=== PATIENT | male | born 1955 | race Caucasian/White ===

== ENCOUNTER 2022-12-16 09:44 | Inpatient (IN) | payer MEDICARE ==
[~2022-12-16] VITALS: Ht 190.5 cm; Wt 100.1 kg
[2022-12-16] MEDS ORDERED: LACTULOSE SYRUP 10GM/15ML (ENULOSE) 30ML UDC PO PRN (10:15)
[2022-12-16] MEDS ORDERED: guaiFENesin/CODEINE (ROBITUSSIN AC) 10ML UDC PO PRN (10:15)
[2022-12-16] MEDS ORDERED: FLEET ENEMA ADULT 1 EA BTL PR PRN (10:15)
[2022-12-16] MEDS ORDERED: CALCIUM CARBONATE 500 MG (TUMS) TAB.CHEW PO PRN (10:15)
[2022-12-16] MEDS ORDERED: ALPRAZolam 0.25 MG (XANAX) TAB PO PRN (10:15)
[2022-12-16] MEDS ORDERED: diphenhydrAMINE 25 MG TAB (BENADRYL) PO PRN (10:15)
[2022-12-16] MEDS ORDERED: LOPERAMIDE 2 MG (IMODIUM) TABLET PO PRN (10:15)
[2022-12-16] MEDS ORDERED: ACETAMINOPHEN 325 MG TABLET PO PRN (10:15)
[2022-12-16] MEDS ORDERED: ONDANSETRON 4 MG (ZOFRAN) ORAL DISSOLVE TAB PO PRN (10:15)
[2022-12-16] MEDS ORDERED: DOCUSATE SODIUM 100 MG (COLACE) CAP PO PRN (10:15)
[2022-12-16] MEDS ORDERED: BISACODYL 10 MG SUPP (DULCOLAX) PR PRN (10:15)
[2022-12-16] MEDS ORDERED: CARV12.53 PO (12:53)
[2022-12-16] MEDS ORDERED: ASPI-999 PO (12:53)
[2022-12-16] MEDS ORDERED: VITA100033 PO (12:53)
[2022-12-16] MEDS ORDERED: KRIL1CAP18 PO (12:53)
[2022-12-16] MEDS ORDERED: LISI40TA9 PO (12:53)
[2022-12-16] MEDS ORDERED: ATOR80TA76 PO (12:53)
[2022-12-16] MEDS ORDERED: ASCO100024 PO (12:53)
[2022-12-16] MEDS ORDERED: CLOP75TA28 PO (12:53)
[2022-12-16] MEDS ORDERED: [UNRECOGNIZED DRUG - REMARK] PO (13:08)
[2022-12-16 15:50] VITALS: BP 119/80
--- NOTE | 2022-12-16 16:44 | PM&R Post Admission Assessment ---
PM&R HP Date of Visit: Dec 16, 2022 Time of Visit: 18:30 History of Present Illness CC: CVA HPI: This is a 67yoWM who presented to ARU following a CVA causing dysarthria and right sided weakness. Patient is having issues with thin liquids so will shift to thickened liquids until speech therapy assesses the patient. Son and daughter are at the bedside. 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 He does have a chronic cough and he does smoke. I have reviewed [facility] chart: Mark Meredith a 67 y.o.malewho was admitted to [facility] on 12/11/2022for evaluation and management of slurred speech with left-sided visual obstruction and right-sided weakness. As per the patient and the family, symptoms started this Friday. He also has dysarthria. Initial imaging was consistent with possible stroke for which she was admitted. 12/12: Head CT shows old infarcts. He also shows age indeterminate infarct around the left thalamic hemisphere left basal ganglia and left pontine hemisphere. Head and neck CTA shows multifocal basal ganglia and left hemithalamic infarcts, left pontine hemisphere infarct. MRI brain although has severe motion artifact but is consistent with multifocal acute nonhemorrhagic infarcts. Echocardiogram, lipid panel and HbA1c pending. 12/13: Echocardiogram showing EF 40 to 45% with global hypokinesis. Negative bubble study. Given patient's stroke, he is not an ideal candidate for any cardiac intervention so we will treat him medically with beta-blockers, ELMA inhibitors, aspirin and statin. He will benefit from outpatient follow-up with cardiology. 12/14: Blood pressure continues to be elevated, I adjusted the dosing of blood pressure medications. Patient is progressing well and is doing much better. Pending placement and insurance authorization. 12/15: Patient's blood pressure was last elevated at 0507. After receiving his morning medications, his blood pressure has remained stable and within deep ropriate range. Patient met with a physical therapist today and completed 36 minutes of PT. Overall, his condition is steadily improving. Patient and family are agreeable with plan to discharge to SNF pending placement and insurance authorization. Patient seen by medical student under direct supervision of Dr. Brandon. 01/02: Patient progressed well and then was discharged to SNF on 12/16. He is to follow-up with PCP, cardiology and neurology after discharge. Repeat CBC and CMP at that time. All of his questions were answered to his satisfaction and patient was pleased with the care. He was discharged in a stable condition Past Yrfiisu-Blexhh-Fdfmxn Hx Past Med/Social Hx: Reviewed Nursing Past Med/Soc Hx, Reviewed and Corrections made Patient Social History Marrital Status: single Employed/Student: retired Alcohol Use: Regular Use Smoking Status: Current Everyday Smoker Past Medical History Cardiac: Hypertension Neurological: Stroke PM&R Allergy/Meds/Data Review Allergies Coded Allergies: No Allergy Information Available (Unverified , 12/16/22) Home Medications Scheduled Ascorbic Acid (Vitamin C), 1,000 MG PO DAILY, (Reported) Aspirin (Aspirin), 81 MG PO DAILY, (Reported) Atorvastatin Calcium (Atorvastatin Calcium), 80 MG PO HS, (Reported) Carvedilol (Carvedilol), 12.5 MG PO BID WITH MEALS, (Reported) Clopidogrel Bisulfate (Clopidogrel), 75 MG PO DAILY, (Reported) Krill/Om-3/Dha/Epa/Phospho/Ast (Krill Oil 1,000 mg Softgel), 1 EACH PO DAILY, (Reported) Lisinopril (Lisinopril), 40 MG PO DAILY, (Reported) Vitamin E Mixed (Vitamin E), 1,000 UNIT PO DAILY, (Reported) [Allergy Supplement], EA PO UD, (Reported) Current Medications Current Medications Reviewed Review of Systems Constitutional: see HPI, malaise, weakness EENTM: no symptoms reported Respiratory: cough Cardiovascular: no symptoms reported Gastrointestinal: no symptoms reported Genitourinary: no symptoms reported Musculoskeletal: back pain, joint pain Skin: no symptoms reported Psychiatric/Neurological: Depressed, Numbness, Weakness All Other Systems Reviewed Negative Unless Noted: Yes Physical Exam Physical Exam Vital Signs Vital Signs - First Documented 12/16/22 15:50 Temp 37.0 Pulse 84 Resp 20 B/P (MAP) 119/80 (93) Pulse Ox 97 O2 Delivery Room Air Capillary Refill : Height, Weight, BMI Height: '" Weight: lbs. oz. kg; BMI Method: General Appearance: No Apparent Distress, WD/WN, Chronically ill Eyes: Bilateral Eye Normal Inspection, Bilateral Eye PERRL HEENT: PERRL/EOMI, Normal ENT Inspection, Pharynx Normal Neck: Full Range of Motion, Normal Inspection, Non Tender, Supple, Carotid Bruit Respiratory: Chest Non Tender, Lungs Clear, No Accessory Muscle Use, No Respiratory Distress, Decreased Breath Sounds Cardiovascular: Regular Rate, Rhythm, No Edema, No Gallop, No JVD, No Murmur, Normal Peripheral Pulses Gastrointestinal: Normal Bowel Sounds, No Organomegaly, No Pulsatile Mass, Non Tender, Soft Back: Normal Inspection, No CVA Tenderness, No Vertebral Tenderness Extremity: Normal Capillary Refill, Normal Inspection, Normal Range of Motion, Non Tender, No Calf Tenderness, No Pedal Edema Neurologic/Psychiatric: Alert, Oriented x3, Abnormal process trainer II-XII, Abnormal Gait, Aphasia, Depressed Affect, Disoriented, Facial Droop, Motor Weakness (right sided 2/5) Skin: Normal Color, Warm/Dry Lymphatic: No Adenopathy PM&R Medical Assessment & Plan REHAB/MEDICAL ASSESSMENT AND PLAN: REHAB IMPAIRMENT GROUP: CVA ETIOLOGIC DIAGNOSIS: CVA The comorbidities that impact the patients function and/or functional outcome by: smoker, COPD, left eye prior injury, dysphagia, high risk for aspiration REHAB PLAN: The patient is being admitted to our comprehensive inpatient rehabilitation facility and can tolerate the intensity of service consisting of at least: 180 minutes of therapy a day, 5 out of 7 days a week Rehab treatment will consist of: PT OT will focus on regaining function with use of AD while ST works on aspiration risk and dysarthria in order to regain independence and return home The patient/family has a good understanding of our discharge process and will benefit from an interdisciplinary inpatient rehabilitation program. The patient has potential to make improvement and is in need of at least two of the following multidisciplinary therapies including but not limited to physical, occupational, speech, and prosthetics and orthotics. Additionally the patient will need services from respiratory, nutritional services, wound care, psychology, etc. (Customize this to each patient). Given the patients complex condition and risk of further medical complications, rehabilitation services cannot be safely or effectively provided at a lower level of care such as a detention facility. BARRIERS TO DISCHARGE: Catastrophic CVA ESTIMATED LOS: 10 days DISPOSITION: Home RELEVANT CHANGES SINCE PREADMISSION SCREENING: I have compared the patients medical and functional status at the time of the preadmission screening and there are: no changes PROGNOSIS: Fair REHABILITATION GOALS: 1. PT OT will focus on regaining function with use of AD while ST works on aspiration risk and dysarthria in order to regain independence and return home All the above goals were reviewed with the patient and he/she is in agreement. By signing this document, I acknowledge that I have personally performed a full physical examination on this patient within 24 hours of admission to this inpatient rehabilitation facility and have determined the patient to be able to tolerate the above course of treatment at an intensive level for a reasonable period of time. I will be completing a detailed individualized Plan of Care for this patient by day #4 of the patients stay based upon the Preadmission Screen, the Post-Admission Evaluation, and the therapy evaluations. Admission Dx/Comorbidities: (1) CVA (cerebral vascular accident) ICD Codes: I63.9 - Cerebral infarction, unspecified Assessment/Plan Assessment and Plan Assess & Plan/Chief Complaint Assessment: CVA Right sided weakness Dysphagia Smoker COPD Chronic cough HTN HLP Left eye blindness Plan: BP management Fall risk Aspiration risk PT OT protocol YUMIKO LIZAMA DO Dec 16, 2022 16:44
[2022-12-16 20:05] VITALS: BP 116/79
[2022-12-16] MEDS: SENNA W/DOCUSATE (SENOKOT S) TABLET PO SCH (21:02)
[2022-12-16] MEDS: DOCUSATE SODIUM 100 MG (COLACE) CAP PO SCH (21:02)
[2022-12-16] MEDS: MELATONIN 3 MG TABLET PO PRN (21:02)
[2022-12-16] MEDS: polyethylene glycoL POWDER 17 GM (MIRALAX) PACK PO SCH (21:02)
[2022-12-17 05:34] LABS: BASOPHILS # (AUTO) 0.1 10^3/uL (0.0-0.1); BASOPHILS % (AUTO) 1 % (0-10); EOSINOPHILS # (AUTO) 0.2 10^3/uL (0.0-0.3); EOSINOPHILS % (AUTO) 2 % (0-10); HEMATOCRIT 47 % (40-54); HEMOGLOBIN 16.2 g/dL (13.3-17.7); LYMPHOCYTES # (AUTO) 3.1 10^3/uL (1.0-4.0); LYMPHOCYTES % (AUTO) 29 % (12-44); MEAN CORPUSCULAR HEMOGLOBIN 31 pg (25-34); MEAN CORPUSCULAR HGB CONC 35 g/dL (32-36); MEAN CORPUSCULAR VOLUME 91 fL (80-99); MEAN PLATELET VOLUME 9.9 fL (9.0-12.2); MONOCYTES % (AUTO) 9 % (0-12); NEUTROPHILS # (AUTO) 6.1 10^3/uL (1.8-7.8); NEUTROPHILS % (AUTO) 58 % (42-75); PLATELET COUNT 280 10^3/uL (130-400); WHITE BLOOD COUNT 10.5 10^3/uL (4.3-11.0)
[2022-12-17 05:54] LABS: ALBUMIN 3.7 GM/DL (3.2-4.5); POTASSIUM 3.7 MMOL/L (3.6-5.0)
[2022-12-17 05:55] LABS: CALCIUM 9.3 MG/DL (8.5-10.1)
[2022-12-17 05:57] LABS: TOTAL PROTEIN 7.4 GM/DL (6.4-8.2)
[2022-12-17 05:58] LABS: BILIRUBIN,TOTAL 0.5 MG/DL (0.1-1.0)
[2022-12-17 06:00] LABS: CREATININE SERUM 0.85 MG/DL (0.60-1.30)
--- NOTE | 2022-12-17 06:16 | PM&R Progress Note ---
Subjective HPI/CC On Admission Date Seen by Provider: Dec 17, 2022 Time Seen by Provider: 08:30 Subjective/Events-last exam 12/17/2022: Doing well Participating with therapy Standing with assist No pain Dysarthria noted Review of Systems General: Fatigue, Malaise Pulmonary: Cough Neurological: Weakness, Incoordination Objective Exam Vital Signs Vital Signs Date Time Temp Pulse Resp B/P (MAP) Pulse Ox O2 Delivery O2 Flow Rate FiO2 12/17/22 18:12 88 116/70 (85) 12/17/22 09:30 Room Air 12/17/22 07:55 36.1 14 97 Capillary Refill : General Appearance: No Apparent Distress, WD/WN, Chronically ill HEENT: PERRL/EOMI, Normal ENT Inspection, Pharynx Normal Neck: Full Range of Motion, Normal Inspection, Non Tender, Supple, Carotid Bruit Respiratory: Chest Non Tender, Lungs Clear, No Accessory Muscle Use, No Respiratory Distress, Decreased Breath Sounds Cardiovascular: Regular Rate, Rhythm, No Edema, No Gallop, No JVD, No Murmur, Normal Peripheral Pulses Gastrointestinal: Normal Bowel Sounds, No Organomegaly, No Pulsatile Mass, Non Tender, Soft Back: Normal Inspection, No CVA Tenderness, No Vertebral Tenderness Extremity: Normal Capillary Refill, Normal Inspection, Normal Range of Motion, Non Tender, No Calf Tenderness, No Pedal Edema Neurologic/Psychiatric: Alert, Oriented x3, Abnormal hvac/r instructor II-XII, Abnormal Gait, Aphasia, Depressed Affect, Disoriented, Facial Droop, Motor Weakness (right sided 2/5) Skin: Normal Color, Warm/Dry Lymphatic: No Adenopathy Results/Procedures Lab Laboratory Tests 12/17/22 05:13 Patient resulted labs reviewed. FIM Transfers Therapy Code Descriptions/Definitions Functional [place] Measure: 0=Not Assessed/NA 4=Minimal Assistance 1=Total Assistance 5=Supervision or Setup 2=Maximal Assistance 6=Modified [place] 3=Moderate Assistance 7=Complete IndependenceSCALE: Activities may be completed with or without assistive devices. 6-Eiuahqwikk-xdqkpyy completes the activity by him/herself with no assistance from a helper. 5-Set-up or Clean-up Assistance-helper sets up or cleans up; patient completes activity. [place] assists only prior to or following the activity. 4-Supervision or Touching Assistance-helper provides verbal cues and/or touching/steadying and/or contact guard assistance as patient completes activity. Assistance may be provided throughout the activity or intermittently. 3-Partial/Moderate Assistance-helper does LESS THAN HALF the effort. [place] lifts, holds or supports trunk or limbs, but provides less than half the effort. 2-Substantial/Maximal Assistance-helper does MORE THAN HALF the effort. [place] lifts or holds trunk or limbs and provides more than half the effort. 4-Osvojwycs-ycxesl does ALL the effort. Patient does none of the effort to complete the activity. Or, the assistance of 2 or more helpers is required for the patient to complete the activity. If activity was not attempted, code reason: 7-Patient Refused. 9-Not Applicable-not attempted and the patient did not perform the activity before the current illness, exacerbation or injury. 10-Not Attempted due to Environmental Limitations-(lack of equipment, weather restraints, etc.). 88-Not Attempted due to Medical Conditions or Safety Concerns. Assessment/Plan Assessment and Plan Assess & Plan/Chief Complaint Assessment: CVA Right sided weakness Dysphagia Smoker COPD Chronic cough HTN HLP Left eye blindness Plan: BP management Fall risk Aspiration risk PT OT protocol 12/17/2022: Monitor closely IS ST consult (1) CVA (cerebral vascular accident) YUMIKO LIZAMA DO Dec 17, 2022 06:16
[2022-12-17 07:52] VITALS: BP 116/79
[2022-12-17 07:55] VITALS: BP 135/91
[2022-12-17] MEDS: ASCORBIC ACID (VIT C) 500 MG TABLET PO SCH (07:55)
[2022-12-17] MEDS: lisINopril 40 MG (PRINIVIL) TABLET PO SCH (07:55)
[2022-12-17] MEDS: CLOPIDOGREL 75 MG (PLAVIX) TABLET PO SCH (07:55)
[2022-12-17] MEDS: DOCUSATE SODIUM 100 MG (COLACE) CAP PO SCH ×2 (07:56→20:59)
[2022-12-17] MEDS: SENNA W/DOCUSATE (SENOKOT S) TABLET PO SCH ×2 (07:56→20:58)
[2022-12-17] MEDS: VITAMIN E 180 MG (400 UNITS) CAP PO SCH (07:56)
[2022-12-17] MEDS: OMEGA 3 (FISH OIL) 1000 MG CAP PO SCH (07:56)
[2022-12-17] MEDS: ASPIRIN 81 MG CHEW (CHILDREN'S ASA) PO SCH (07:56)
--- NOTE | 2022-12-17 08:05 | Occupational Therapy Eval ---
OT Evaluation-General/PLF Medical Diagnosis Admission Date Dec 16, 2022 at 15:50 Medical Diagnosis: s/p CVA Onset Date: Dec 11, 2022 Therapy Diagnosis Therapy Diagnosis: decreased ADL status, imparied functional use RUE. Precautions Precautions/Isolations: Fall Prevention, Standard Precautions Referral Physician: Rose Sharif Reason: Evaluation/Treatment Medical History Additional Medical History tobacco use, marijuana use, L ptosis Current History 12/11/22 ED via family with c/o possible CVA. ~5 days prior, pt had worsening speech, confusion, L lid lag, and difficulty moving RUE/LE. Pt admitted to [facility] and with L thalamic hemisphere, L basal ganglia and L pontine hemisphere CVA. Pt transferred to ARU 12/16/22 Social History Home: Mobile home Current Living Status: Children (son) Entry Into Home: Ramp ADL-Prior Level of Function SCALE: Activities may be completed with or without assistive devices. 5-Druphnblsl-lwkhuxu completes the activity by him/herself with no assistance from a helper. 5-Set-up or Clean-up Assistance-helper sets up or cleans up; patient completes activity. [place] assists only prior to or following the activity. 4-Supervision or Touching Assistance-helper provides verbal cues and/or touching/steadying and/or contact guard assistance as patient completes activity. Assistance may be provided throughout the activity or intermittently. 3-Partial/Moderate Assistance-helper does LESS THAN HALF the effort. [place] lifts, holds or supports trunk or limbs, but provides less than half the effort. 2-Substantial/Maximal Assistance-helper does MORE THAN HALF the effort. [place] lifts or holds trunk or limbs and provides more than half the effort. 8-Xkfcheslu-yrlxzr does ALL the effort. Patient does none of the effort to complete the activity. Or, the assistance of 2 or more helpers is required for the patient to complete the activity. If activity was not attempted, code reason: 7-Patient Refused. 9-Not Applicable-not attempted and the patient did not perform the activity before the current illness, exacerbation or injury. 10-Not Attempted due to Environmental Limitations-(lack of equipment, weather restraints, etc.). 88-Not Attempted due to Medical Conditions or Safety Concerns. ADL PLOF Comments Per pt and chart review from OSH, pt was independent with ADLs and functional mobility without AD. Pt has a tub/shower, unsure if pt has a SC or not. Self Care: Independent Functional Cognition: Independent DME/Equipment: Tub/Shower DME/Equipment Comments owns BSC, FWW, w/c. OT Current Status Subjective OT had difficulty understanding what pt was trying to say. OT noted coughing on thin liquids, OT notified RN (possible aspiration?) Mental Status/Objective Patient Orientation: Person, Place, Time, Situation Current Hand Dominance: Right Upper Extremity ROM WFL bilaterally Upper Extremity Coordination decreased RUE Upper Extremity Sensation Pt reports intact sensation BUEs. Upper Extremity Strength RUE grossly 3+/5, LUE grossly 4+/5 ADL-Treatment Eating (QC): 5 Oral Hygiene (QC): 4 Shower/Bathe Self (QC): 1 Upper Body Dressing (QC): 3 Lower Body Dressing (QC): 1 On/Off Footwear (QC): 5 Toileting Hygiene (QC): 1 Other Treatments Pt up in recliner eating breakfast, agreeable to OT evaluation. Noted pt coughing when taking a drink of water out of a cup (no straw), RN aware. Pt provided information about PLOF and home set up to his ability (OT had difficulty understanding what pt was saying most of the time). Pt also participated in UE screen. Post tx, pt up in recliner, call light in reach and all needs met, VENTURA present to continue tx. Education OT Patient Education: Correct positioning, Energy conservation, Modified ADL techniques, Progress toward Goal/Update tx plan, Purpose of tx/functional activities, Rehab process Teaching Recipient: Patient Teaching Methods: Discussion Response to Teaching: Verbalize Understanding BIMS CAM BIMS Expression of Ideas and Wants: Frequently Understanding Verbal Content: Usually Understands Brief Interview/Mental Status: Yes IRF GRIFFIN BIMS: IRF GRIFFIN BIMS Response (Comments) Value Repitition of Three Words Two 2 Recalls Socks No, Could Not Recall 0 Recalls Blue No, Could Not Recall 0 Recalls Bed No, Could Not Recall 0 Year Correct 3 Month Accurate Within 5 Days 2 Day Incorrect or No Answer 0 Total 7 Should Staff Asses. Mental St.: No CAM Mental Status Change/Baseline: 1 Inattention: 2 Disorganized thinkin Altered level of consciousness: 0 OT Short Term Goals Short Term Goals Time Frame: Jan 03, 2023 Shower/bathe self: 2 Lower body dressin OT Welder/Fabricator Goals Welder/Fabricator Goals Time Frame: January 17, 2023 Eating (QC): 6 Oral Hygiene (QC): 6 Toileting Hygiene (QC): 4 Shower/Bathe Self (QC): 4 Upper Body Dressing (QC): 4 Lower Body Dressing (QC): 4 On/Off Footwear (QC): 4 Additional Goals: 1-Demonstrate ADL Tasks, 2-Verbalize Understanding, 3- ImproveStrength/Talha 1=Demonstrate adherence to instructed precautions during ADL tasks. 2=Patient will verbalize/demonstrate understanding of assistive devices/modifications for ADL. 3=Patient will improve strength/tolerance for activity to enable patient to perform ADL's. OT Education/Plan Problem List/Assessment Assessment: Decreased Activ Tolerance, Decreased Safety Aware, Decreased UE Strength, Impaired Cognition, Impaired Coordination, Impaired Funct Balance, Impaired I ADL's, Impaired Self-Care Skills, Restricted Funct UE ROM, Visual- Perceptual Deficit Discharge Recommendations Plan/Recommendations: Continue POC Equpiment Recommendations-D/C: Extended Bath Bench, Bath Chair Treatment Plan/Plan of Care Patient would benefit from OT for education, treatment and training to promote independence in ADL's, mobility, safety and/or upper extremity function for ADL's. Plan of Care: ADL Retraining, Functional Mobility, Group Exercise/Act as Ind, UE Funct Exercise/Act, UE Neuromus Re-Ed/Coord, Visual/Perceptual Retrain, W/C Management Training Treatment Duration: January 17, 2023 Frequency: At least 5 of 7 days/Wk (IRF) Estimated Hrs Per Day: 1.5 hours per day Agreement: Yes Rehab Potential: Fair Time Start Time: 07:40 Stop Time: 08:00 DATE: Dec 17, 2022 Total Time Billed (hr/min): 20 Billed Treatment Time 1, ZAINAB MAI OT Dec 17, 2022 08:05
[2022-12-17] MEDS: polyethylene glycoL POWDER 17 GM (MIRALAX) PACK PO SCH ×2 (08:17→20:59)
--- NOTE | 2022-12-17 08:22 | Occupational Ther Daily Note ---
OT Current Status-Daily Note Subjective Pt alert, sitting in recliner. Pt agrees to therapy after encouragement. Pt states that he doesn't want to do much today. Pt tired but able to participate in skilled therapy. PT/OT co-treat ([id number]), skills of 2 clinicians required to decrease fall risk, increase safe transfers and mobility. Pt focusing on transfers, ambulation while OT focusing on ADLs and functional mobility. Mental Status/Objective Patient Orientation: Person, Place, Time, Situation, [place] ADL-Treatment Pt declines shower though was able to cleanse christelle area in sitting after set up. Thread feet into pants by self then assist x2 to hike over hips due to pt leaning and decreased balance to L side. After set up, pt able to don/doff shoes by self. Therapy Code Descriptions/Definitions Functional [place] Measure: 0=Not Assessed/NA 4=Minimal Assistance 1=Total Assistance 5=Supervision or Setup 2=Maximal Assistance 6=Modified [place] 3=Moderate Assistance 7=Complete IndependenceSCALE: Activities may be completed with or without assistive devices. 4-Svxlbmosim-qktgpyq completes the activity by him/herself with no assistance from a helper. 5-Set-up or Clean-up Assistance-helper sets up or cleans up; patient completes activity. [place] assists only prior to or following the activity. 4-Supervision or Touching Assistance-helper provides verbal cues and/or touching/steadying and/or contact guard assistance as patient completes activity. Assistance may be provided throughout the activity or intermittently. 3-Partial/Moderate Assistance-helper does LESS THAN HALF the effort. [place] lifts, holds or supports trunk or limbs, but provides less than half the effort. 2-Substantial/Maximal Assistance-helper does MORE THAN HALF the effort. [place] lifts or holds trunk or limbs and provides more than half the effort. 6-Kfotpfpty-dgwcfg does ALL the effort. Patient does none of the effort to complete the activity. Or, the assistance of 2 or more helpers is required for the patient to complete the activity. If activity was not attempted, code reason: 7-Patient Refused. 9-Not Applicable-not attempted and the patient did not perform the activity before the current illness, exacerbation or injury. 10-Not Attempted due to Environmental Limitations-(lack of equipment, weather restraints, etc.). 88-Not Attempted due to Medical Conditions or Safety Concerns. Lower Body Dressing (QC): 1 On/Off Footwear: 5 Other Treatment See PT notes for ambulation progress. Pt required increased assistance with maintaining midline during standing and ambulation, assist to manipulate FWW for safety. After therapy, pt lying in bed with call light/phone in reach. PROJECTOR OPERATOR took over care of pt. OT Short Term Goals Short Term Goals Time Frame: Jan 03, 2023 Shower/bathe self: 2 Lower body dressin OT [facility] Goals Software Test Analyst Goals Time Frame: January 17, 2023 Acute change in mental status: 1 Inattention: 2 Disorganized thinkin Altered level of consciousness: 0 Eating (QC): 6 Oral Hygiene (QC): 6 Toileting Hygiene (QC): 4 Shower/Bathe Self (QC): 4 Upper Body Dressing (QC): 4 Lower Body Dressing (QC): 4 On/Off Footwear (QC): 4 Additional Goals: 1-Demonstrate ADL Tasks, 2-Verbalize Understanding, 3- ImproveStrength/Talha 1=Demonstrate adherence to instructed precautions during ADL tasks. 2=Patient will verbalize/demonstrate understanding of assistive devices/modifications for ADL. 3=Patient will improve strength/tolerance for activity to enable patient to perform ADL's. OT Education/Plan Problem List/Assessment Assessment: Decreased Activ Tolerance, Decreased Safety Aware, Decreased UE Strength, Dependent Transfers, Impaired Bed Mobility, Impaired Cognition, Impaired Coordination, Impaired Funct Balance, Impaired I ADL's, Impaired Self- Care Skills, Restricted Funct UE ROM, Visual-Perceptual Deficit Discharge Recommendations Plan/Recommendations: Continue POC Treatment Plan/Plan of Care Patient would benefit from OT for education, treatment and training to promote independence in ADL's, mobility, safety and/or upper extremity function for ADL 's. Plan of Care: ADL Retraining, Functional Mobility, Group Exercise/Act as Ind, UE Funct Exercise/Act, UE Neuromus Re-Ed/Coord, Visual/Perceptual Retrain, W/C Management Training Treatment Duration: January 17, 2023 Frequency: At least 5 of 7 days/Wk (IRF) Estimated Hrs Per Day: 1.5 hours per day Agreement: Yes Rehab Potential: Fair Time Start Time: 08:15 Stop Time: 09:03 DATE: Dec 17, 2022 Total Time Billed (hr/min): 48 Billed Treatment Time 1 visit-FA 3 (48 min) co-treat with PT [id number] JHOANA GRACE Dec 17, 2022 08:22
[2022-12-17] MEDS ORDERED: VITAMIN E MIXED 1000 UNIT PO SCH (09:00)
[2022-12-17] MEDS ORDERED: NON-FORMULARY MEDICATION 1 EA EA (Ascorbic Acid (Vitamin C) 1,000 MG) PO SCH (09:00)
[2022-12-17] MEDS ORDERED: NON-FORMULARY MEDICATION 1 EA EA (Krill/Om-3/Dha/Epa/Phospho/Ast (Krill Oil 1,000 mg Softg PO SCH (09:00)
--- NOTE | 2022-12-17 09:25 | Physical Therapy Evaluation ---
PT Evaluation-General Medical Diagnosis Admission Date Dec 16, 2022 at 15:50 Medical Diagnosis: s/p CVA Onset Date: Dec 11, 2022 Therapy Diagnosis Therapy Diagnosis: (L) CVA, (R) hemiparesis, severe balance/gait deficits, impaired mobility Height/Weight Height (Feet): 6 Height (Inches): 3 Precautions Precautions/Isolations: Fall Prevention, Standard Precautions significant fall risk Weight Bear Status Full Weight Bearing Full Weight Bearing Pushes significantly toward (R)/affected side Referral Physician: Rose Reason for Referral: Evaluation/Treatment Medical History Pertinent Medical History: CAD, CVA, HTN, [place], Smoking Additional Medical History HLD, depression, PAD. leukocytosis, tobacco and marijuana user. per CT = (B) age-indeterminate strokes and while matter disease - multiple lacunar infarcts (old) (L), (R) basal ganglia infarct, probably new (L) thalamic CVA Social History Home: Mobile home Current Living Status: Children (son) Entry Into Home: Ramp Prior Prior Level of Function SCALE: Activities may be completed with or without assistive devices. 8-Ucqanfunvi-dvskrfi completes the activity by him/herself with no assistance from a helper. 5-Set-up or Clean-up Assistance-helper sets up or cleans up; patient completes activity. [place] assists only prior to or following the activity. 4-Supervision or Touching Assistance-helper provides verbal cues and/or touching/steadying and/or contact guard assistance as patient completes activity. Assistance may be provided throughout the activity or intermittently. 3-Partial/Moderate Assistance-helper does LESS THAN HALF the effort. [place] lifts, holds or supports trunk or limbs, but provides less than half the effort. 2-Substantial/Maximal Assistance-helper does MORE THAN HALF the effort. [place] lifts or holds trunk or limbs and provides more than half the effort. 0-Hjienfnlo-fdnker does ALL the effort. Patient does none of the effort to complete the activity. Or, the assistance of 2 or more helpers is required for the patient to complete the activity. If activity was not attempted, code reason: 7-Patient Refused. 9-Not Applicable-not attempted and the patient did not perform the activity before the current illness, exacerbation or injury. 10-Not Attempted due to Environmental Limitations-(lack of equipment, weather restraints, etc.). 88-Not Attempted due to Medical Conditions or Safety Concerns. 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 Home equip available: crutches, BSC, 2RW and W/C per Sharlene notes. PT Evaluation-Current Subjective Dysarthric speech. Able to greet this P.T. Appropriate comments during session. Able to follow commands for LE MMT and transfers. Pain Numeric Pain Scale: 0-No Pain Section J - Health Conditions 1. Rarely or not at all 2. Occasionally 3. Frequently 4. Almost constantly 8. Unable to answer Pain Effect on Sleep: 1 Pain Interference with Therapy: 1 Pain Interference w/Day-to-Day: 1 Pt/Family Goals To return home with son Objective Patient Orientation: Person, Situation Sitting EOB /p transfers: O2 sats ~ 95% on room air as long as patient breathed normally. When patient breathed deeply his O2 sats dropped to the high 80's. Instructed patient to breath normally and they returned to ~ 95%. Dr. Rose made aware during her visit to the patient's room. ROM/Strength ROM Upper Extremities deferred to OT ROM Lower Extremities WFL ROM (L) LE, WFL (R) LE at hip/knee given increased time to complete due to motor coordination deficits. Mild decrease in (R) ankle DF compared to (L). Strength Upper Extremities deferred to OT Strength Lower Extremities (L) LE knee flex/ext 5/5, hip flexion 5/5, hip abd/add 5/5. Ankle PF/DF 5/5. (R) LE knee flexion/ext 4+/5, hip flexion 4/5, hip abd/add 4/5. Ankle DF 4/5, PF 4/5. Neuromuscular (Tone, Coordination, Reflexes) Significant motor coordination impairment in (B) LE's, more involved on (R). See OT for (R) UE report. Sensory Vision: L impaired Hand Dominance: Right Sensation Right Lower Extremit: Intact Sensation Left Lower Extremity: Intact Transfers Roll Left & Right (QC): 3 (Min (A) to roll (L) -- needed therapist to place (R) hand on bedrail for patient to pull. (I) rolling (R) with bedrail.) Sit to Lying (QC): 3 (min (A) of 1 to lift (R) leg onto bed) Lying to Sitting/Side of Bed(Q: 3 (mod (A) of 1 to lift trunk sit sit EOB and min (A) due to leaning (R) once in sitting. Patient was able to regain sitting balance and sit without assist once scooted to EOB.) Sit to Stand (QC): 1 (Min-mod (A) of 2 to FWW with assist and cues for (B) hand placement. Also cues and assist to uncross feet prior to sit>stand.) Chair/Pgf-jd-Pakgw Xfer(QC): 1 (mod-max (A) of 1 for stand pivot with FWW or stand pivot without device - leans heavily to (L) and needs (A) with walker negotiation, difficulty advancing LE's without crossing feet.) Toilet Transfer (QC): 1 ((A) of 2 for safety.) Car Transfer (QC): 88 (Not safe today due to assist required for basic transfers.) Pushes heavily to (R) with transfers with or without device. Gait Does the Patient Walk?: Yes Mode of Locomotion: Both Anticipated Mode of Locomotion: Both Walk 10 feet (QC): 1 (Mod-max (A) of 2 with 3rd person for w/c backup with FWW, leans heavily to (R), difficulty advancing (R) LE even with built-up sole on (L) LE. Scissors feet occasionally.) Walk 50 ft with 2 Turns(QC): 88 (Unable to cover 50' safely) Walk 150 ft (QC): 88 (Unable to cover 50' safely) Walking 10ft/uneven surface-QC: 88 (Unable to perform safely) Wheelchair Training Does the Pt Use a Wheelchair?: Yes Distance: 50 Wheel 50 ft with 2 turns (QC): 3 (Min (A) using (L) UE and feet, CGA using (B) LE's only with cues to avoid obstacles, min (A) using (L) UE and (L) LE ((R) foot on legrest).) Wheel 150 ft (QC): 3 (Min (A) using (L) UE and feet, CGA using (B) LE's only with cues to avoid obstacles, min (A) using (L) UE and (L) LE ((R) foot on legrest).) Type of Wheelchair: Manual Be cautious with (R) hand as patient attempts to use it and "loses" (R) hand at wheel. Able to lock/unlock brakes with mod verbal/visual cues using (L) UE. Stairs 1 Step (curb) (QC): 88 4 Steps (QC): 88 12 Steps (QC): 88 Stair ambulation not safe to perform due to significant balance and gait deficits. Balance Sitting Static: Fair Sitting Dynamic: Poor Standing Dynamic: Poor Picking up an Object (QC): 88 (unsafe to attempt in standing due to balance deficits.) Special Test Comments Elderly Mobility Scale: 2/20 = dependent for mobility Treatment Standing balance with FWW with weight shifts (L)/(R) with mirror in front of patient to assist with finding midline and shifting weight away from (R) side. Mod (A) of 2. Walking with built-up sole on (L) LE to ease step-through on (R) - mild improvement but continued to push heavily to the (R) - max (A) to maintain patient's upright posture by therapist on patient's right. 2nd therapist assist with gait and 3rd assist from Senior Ui Developer for W/C f/u. Assessment/Needs 67 year old male with significant mobility deficits, severe balance impairment and severe motor coordination deficits. Leans HEAVILY to (R) with gait and transfers and has difficulty with feet placement, crossing feet at times. Is a HIGH fall risk at this time and dependent with upright mobility, requiring 2 staff for transfers. Rehab Potential: Fair Equipment Needs Will need a w/c at D/C. [employer] notes states he has one at home. May need hemiwalker vs. FWW - will continue to assess. PT Typing Bookkeeper Goals Typing Bookkeeper Goals PT Typing Bookkeeper Goals Time Frame: January 14, 2023 Roll Left to Right (QC): 6 Sit to Lying (QC): 5 Lying-Sitting on Side/Bed(QC): 5 Sit to Stand (QC): 3 (Min (A) of 1) Chair/Bbl-ss-Bxvlk Xfer(QC): 3 (Min (A) of 1) Toilet/Commode Transfer (QC): 3 (Min (A) of 1) Car Transfer (QC): 3 (Min (A) of 1) Does the Patient Walk: Yes Walk 10 feet (QC): 3 (Mod (A) of 1 with least restrictive device) Walk 10ft-Uneven Surface(QC): 88 Walk 50ft with 2 Turns (QC): 3 (mod (A) of 1 with least restrictive device) Walk 150 ft (QC): 88 Does the Pt use WC or Scooter?: Yes Wheel 50 feet with 2 turns (QC: 5 Type: Manual Wheel 150 feet: 5 1 Step (curb) (QC): 88 4 Steps (QC): 88 12 Steps (QC): 88 Picking up an Object (QC): 3 (mod (A) of 1 with FWW and industrial gas fitter helper) PT Plan Problem List Problem List: Activity Tolerance, Functional Strength, Safety, Balance, Gait, Transfer, Bed Mobility, ROM, Other (W/C propulsion/management) Treatment/Plan Treatment Plan: Continue Plan of Care Treatment Plan: Bed Mobility, Education, Functional Activity Talha, Functional Strength, Group Therapy, Gait, Safety, Therapeutic Exercise, Transfers, Other (W/C propulsion/management) Treatment Duration: January 14, 2023 Frequency: At least 5 of 7 days/Wk (IRF) Estimated Hrs Per Day: 1.5 hours per day Patient and/or Family Agrees t: Yes Safety Risks/Education Safety Risk Comments: Significant fall risk Patient Education: Gait Training, Transfer Techniques, W/C Management, Safety Issues Teaching Recipient: Patient Teaching Methods: Demonstration, Discussion Response to Teaching: Reinforcement Needed Discharge Recommendations Therapy Discharge Recommendati: 24 Hour Supervision, Home & Family, Post Acute PT Equpiment Recommendations-D/C: Manual Wheelchair, Other, Please Explain (FWW or hemiwalker) Barriers to Progress Severity of balance impairment. Time Time In: 805 Time Out: 903 DATE: Dec 17, 2022 Total Billed Treatment Time: 58 Total Billed Treatment 8:05-8:15 - [facility] 10'. 8:15-9:03 - 48' Co-treatment with OT, (1 Gt(20'), 1 FA(18'), 1 W/C(10')). Co-treatment appropriate and necessary for this patient due acuity, severity of impairments with balance/coordination/gait/functional mobility that require 2 person assist to address multiple issues and provide for patient safety. Rosita Ozuna PT Dec 17, 2022 09:25
--- NOTE | 2022-12-17 11:00 | ST Dysphagia Evaluation ---
Speech Evaluation-General Medical Diagnosis s/p CVA Onset Date: Dec 11, 2022 Therapy Diagnosis Therapy Diagnosis: Suspected Oropharyngeal Dysphagia Precautions Precautions: Fall, Pressure Ulcer, Aspiration Precautions/Isolations: Aspiration, Fall Prevention, Standard Precautions, Pressure Ulcer Referral Referring Physician: Dr. Gabriela Rose Reason for Referral: Evaluation/Treatment Medical History Pertinent Medical History: CAD, CVA, HTN, [place], Smoking Reviewed History: Yes Social History Current Living Status: Children (son) Speech PLF/Current-Dysphagia Prior Level of Function The patient stated he was consuming a regular consistency diet with thin liquids prior to his most recent stroke. The patient denied prior challenges or concerns with his oropharyngeal swallowing function. The patient underwent a clinical bedside swallowing evaluation at [facility] on 10/17/22 with recommendations of a regular consistency diet with thin liquids. Subjective The patient was seated upright in his bed, awake and alert, upon entrance to his room by the clinician. The patient greeted the clinician appropriately and was agreeable to participation in the clinical bedside swallowing evaluation. To note, the patient displayed "coughing" on thin liquids with the RN and the Occupational Therapist. Due to this, the patient is receiving "thickened" liquids at this time. Cognitive Status Patient Orientation: Person, Place, Time, Situation Oral Motor Skills Dentition: Natural Current Food Consistancy: Regular, Thin Liquids Ability to Follow Directions: Good Oral Expression Ability: Moderate Impairment Voice Voice Phonatory-Based Quality: Glottal Snell Voice Pitch: Normal Voice Loudness: Normal Face Facial Symmetry: Asymmetrical Oral-Facial Assessment Oral-Facial Dentition: Normal Labial Seal Description: Normal Smile: Normal Puff Cheeks: Normal Lingual Protrusion: Normal Lingual ROM: Normal Lingual Strength: Normal Volitional Dry Swallow: Yes Voluntary Cough: Yes Can Clear Throat Volitionally: Yes Productive Cough: Yes Productive Throat Clear: Yes Dysphagia Evaluation Consistencies Presented: Regular, Thin Liquid, [place] Thick Liquid (Mildly thick liquids.), Pureed The clinician suspected poor lingual coordination with posterior spillage of thin liquids from the oral cavity. A suspected pharyngeal swallow delay was appreciated with thin liquid consistencies. Funct. Velo/Pharyngeal Symptom: Cough After Swallow The patient displayed an immediate, rigorous cough following one of five teaspoons of thin liquid and three cup edge drinks of eight ounces. No s/s of suspected aspiration were displayed with mildly thick liquid, puree, or solid co nsistencies tested. Dietary Recommendations: Regular Liquid Recommendations: [place] Consistancy (Mildly thick.) Recommendations: - Regular consistency diet with mildly thick liquids, as tolerated. - Fully upright and alert for P.O. intake. - Small bites and sips, only. - No straws. - Assistance with meal set-up and feeding, as needed. - Monitor for s/s of suspected aspiration with P.O. intake. If demonstrated, please contact speech pathology. - The patient will undergo a modified barium swallow evaluation on 12/18/22 at 0945 to further assess the safety of the swallow mechanism and better plan therapy techniques. The results and recommendations were provided to the patient and the patient's R N immediately following completion of the study. Dysphagia Evaluation Summary The patient demonstrated suspected oropharyngeal dysphagia characterized by mildly prolonged mastication of solid consistencies, suspected poor lingual coordination, and suspected delay in the pharyngeal swallow onset. The patient displayed intermittent s/s of suspected aspiration with thin liquids characterized by an immediate, rigorous cough. Speech Short Term Goals Short Term Goals Short Term Goals 1. The patient will display safe swallowing precautions with 80% accuracy, independently. Time Frame-STG: Five Days. Speech Registered Radiologic Technologist Goals Long-Term Goals 1. The patient will tolerate the least restrictive diet consistency without s/s of suspected aspiration. Time Frame: One Week. Speech-Plan Treatment Plan Speech Therapy Treatment Plan: Continue Plan of Care Frequency: Modified Program (IRF) (Three to fives times per week.) Estimated Hrs Per Day: .5 hour per day Rehab Potential: Fair Pt/Family Agrees to Plan: Yes Safety Risks/Education Teaching Recipient: Patient Teaching Methods: Discussion Response to Teaching: Verbalize Understanding Education Topics Provided: Safe Swallowing Precautions, Modified Barium Swallow, Results, Recommendations Time Speech Therapy Time In: 09:03 Speech Therapy Time Out: 09:38 DATE: Dec 17, 2022 Total Billed Time: 35 Billed Treatment Time 1, [facility] Dec 17, 2022 11:00
--- NOTE | 2022-12-17 11:47 | Occupational Ther Daily Note ---
OT Current Status-Daily Note Subjective Pt sleeping in bed, difficult to wake. Pt would wake and talk to VENTURA though declined to complete any OOB tasks. Mental Status/Objective Patient Orientation: Person, Situation ADL-Treatment Therapy Code Descriptions/Definitions Functional [place] Measure: 0=Not Assessed/NA 4=Minimal Assistance 1=Total Assistance 5=Supervision or Setup 2=Maximal Assistance 6=Modified [place] 3=Moderate Assistance 7=Complete IndependenceSCALE: Activities may be completed with or without assistive devices. 6-Qbkrjaukzb-cjadkci completes the activity by him/herself with no assistance from a helper. 5-Set-up or Clean-up Assistance-helper sets up or cleans up; patient completes activity. [place] assists only prior to or following the activity. 4-Supervision or Touching Assistance-helper provides verbal cues and/or touching/steadying and/or contact guard assistance as patient completes activity. Assistance may be provided throughout the activity or intermittently. 3-Partial/Moderate Assistance-helper does LESS THAN HALF the effort. [place] lifts, holds or supports trunk or limbs, but provides less than half the effort. 2-Substantial/Maximal Assistance-helper does MORE THAN HALF the effort. [place] lifts or holds trunk or limbs and provides more than half the effort. 4-Ydaiemhsw-bwgtcm does ALL the effort. Patient does none of the effort to complete the activity. Or, the assistance of 2 or more helpers is required for the patient to complete the activity. If activity was not attempted, code reason: 7-Patient Refused. 9-Not Applicable-not attempted and the patient did not perform the activity before the current illness, exacerbation or injury. 10-Not Attempted due to Environmental Limitations-(lack of equipment, weather restraints, etc.). 88-Not Attempted due to Medical Conditions or Safety Concerns. Other Treatment Pt demonstrating ability to assist with bed mobility though scoots down in bed almost immediately. Attempted to have pt change shirt, which he wanted to early, pt declined. Attempted to have pt sit up in recliner to eat lunch, pt stated that he doesn't want to eat. After therapy, pt fell back to sleep in bed. All needs met in room. Call light/phone in reach. Safety measures in place. OT Short Term Goals Short Term Goals Time Frame: Jan 03, 2023 Shower/bathe self: 2 Lower body dressin OT Group Home Goals Group Home Goals Time Frame: January 17, 2023 Acute change in mental status: 1 Inattention: 2 Disorganized thinkin Altered level of consciousness: 0 Eating (QC): 6 Oral Hygiene (QC): 6 Toileting Hygiene (QC): 4 Shower/Bathe Self (QC): 4 Upper Body Dressing (QC): 4 Lower Body Dressing (QC): 4 On/Off Footwear (QC): 4 Additional Goals: 1-Demonstrate ADL Tasks, 2-Verbalize Understanding, 3- ImproveStrength/Talha 1=Demonstrate adherence to instructed precautions during ADL tasks. 2=Patient will verbalize/demonstrate understanding of assistive devices/modifications for ADL. 3=Patient will improve strength/tolerance for activity to enable patient to perform ADL's. OT Education/Plan Problem List/Assessment Assessment: Decreased Activ Tolerance, Decreased Safety Aware, Impaired Bed Mobility Discharge Recommendations Plan/Recommendations: Continue POC Treatment Plan/Plan of Care Patient would benefit from OT for education, treatment and training to promote independence in ADL's, mobility, safety and/or upper extremity function for ADL's. Plan of Care: ADL Retraining, Functional Mobility, Group Exercise/Act as Ind, UE Funct Exercise/Act, UE Neuromus Re-Ed/Coord, Visual/Perceptual Retrain, W/C Management Training Treatment Duration: January 17, 2023 Frequency: At least 5 of 7 days/Wk (IRF) Estimated Hrs Per Day: 1.5 hours per day Agreement: Yes Rehab Potential: Fair Time Start Time: 11:25 Stop Time: 11:33 DATE: Dec 17, 2022 Total Time Billed (hr/min): 8 Billed Treatment Time 1 visit-FA 1 (8 min) JHOANA GRACE Dec 17, 2022 11:47
--- NOTE | 2022-12-17 13:34 | Physical Therapy Daily Note ---
PT Daily Note-Current Subjective No new c/o this a.m. Pain Section J - Health Conditions 1. Rarely or not at all 2. Occasionally 3. Frequently 4. Almost constantly 8. Unable to answer Pain Effect on Sleep: 1 Pain Interference with Therapy: 1 Pain Interference w/Day-to-Day: 1 Mental Status Garbled speech persists, but patient is able to make basic needs known. Transfers SCALE: Activities may be completed with or without assistive devices. 5-Gnkpqcqvqs-yfqfmby completes the activity by him/herself with no assistance from a helper. 5-Set-up or Clean-up Assistance-helper sets up or cleans up; patient completes activity. [place] assists only prior to or following the activity. 4-Supervision or Touching Assistance-helper provides verbal cues and/or touching/steadying and/or contact guard assistance as patient completes activity. Assistance may be provided throughout the activity or intermittently. 3-Partial/Moderate Assistance-helper does LESS THAN HALF the effort. [place] lifts, holds or supports trunk or limbs, but provides less than half the effort. 2-Substantial/Maximal Assistance-helper does MORE THAN HALF the effort. [place] lifts or holds trunk or limbs and provides more than half the effort. 4-Mqcsuhpmi-ektrae does ALL the effort. Patient does none of the effort to complete the activity. Or, the assistance of 2 or more helpers is required for the patient to complete the activity. If activity was not attempted, code reason: 7-Patient Refused. 9-Not Applicable-not attempted and the patient did not perform the activity before the current illness, exacerbation or injury. 10-Not Attempted due to Environmental Limitations-(lack of equipment, weather restraints, etc.). 88-Not Attempted due to Medical Conditions or Safety Concerns. Sit to Lying (QC): 4 (CGA at end of session.) Lying to Sitting/Side of Bed(Q: 4 (CGA this pm for sitting balance once EOB.) Sit to Stand (QC): 3 (min (A) of 1-2 from w/c x 3 using // bar. Stand to sit requires more mod (A) as patient shifts weight hard to (R) as he is sitting.) Chair/Eif-ge-Onuwc Xfer(QC): 3 (Swing pivot w/c<>bed using bedrail or arm of w/c min-mod (A) of 2.) Weight Bearing Full Weight Bearing Full Weight Bearing Pushes significantly toward (R)/affected side Gait Training Gait training in // bars with (L) LE only,with mirror directly in front of patient. -pre-gait (R)/(L) weight shifts with (A) of 3, much taller posture than when FWW was utilized this a.m. -Gait forward (length of bars) with mod (A) of 1-2, retro gait length of // bars mod (A) of 1. *while standing upright, lungs palpated with rattles with therapists hand supported patient on front of (R) chest. *seated rest break x 2' Sit>stand pulling from // bar rail mod (A) of 1. Ambulated with reciprocal continuous steps without scissoring feet nor losing balance to (R) min (A)-mod (A) x 1. Retro walk length of bars with (L) UE only, min (A) of 1. Walked forward again without rest min-mod (A) of 1 with more halting steps and some scissoring, then retro walked length of // bars min (A) of 1. Wheelchair Training Wheel 50 ft with 2 turns (QC): 4 (Patient propelled w/c to/from gym using (B) LE's with prn cues and assist for (R) obstacles.) Type of Wheelchair: Manual Assessment Much improved gait pattern with 1 // bar compared to FWW this a.m. Will utilize hemiwalker vs FWW in therapy to assist with upright mobility. Patient peformed well with swing pivot transfers this date compared to standing transfers this a.m. PT Retirement Goals Drivers License Examiner Goals PT Drivers License Examiner Goals Time Frame: January 14, 2023 Roll Left & Right (QC): 6 Sit to Lying (QC): 5 Lying-Sitting on Side/Bed(QC): 5 Sit to Stand (QC): 3 (Min (A) of 1) Chair/Vbc-ni-Nalhq Xfer(QC): 3 (Min (A) of 1) Toilet Transfer (QC): 3 (Min (A) of 1) Car Transfer (QC): 3 (Min (A) of 1) Does the Patient Walk: Yes Walk 10 feet (QC): 3 (Mod (A) of 1 with least restrictive device) Walk 50ft with 2 Turns (QC): 3 (mod (A) of 1 with least restrictive device) Walk 150 ft (QC): 88 Walking 10ft on Uneven Surface: 88 1 Step (curb) (QC): 88 4 Steps (QC): 88 12 Steps (QC): 88 Picking up an Object (QC): 3 (mod (A) of 1 with FWW and bolt sawyer) Does the Pt use WC or Scooter?: Yes Wheel 50 feet with 2 turns (QC: 5 Type: Manual Wheel 150 feet: 5 PT Plan Problem List Problem List: Activity Tolerance, Functional Strength, Safety, Balance, Gait, Transfer, Bed Mobility, ROM, Other (w/c propulsion) Treatment/Plan Treatment Plan: Continue Plan of Care Treatment Plan: Bed Mobility, Education, Functional Activity Talha, Functional Strength, Group Therapy, Gait, Safety, Therapeutic Exercise, Transfers, Other (W/C propulsion/management) Treatment Duration: January 14, 2023 Frequency: At least 5 of 7 days/Wk (IRF) Estimated Hrs Per Day: 1.5 hours per day Patient and/or Family Agrees t: Yes Time Time In: 1300 Time Out: 1323 DATE: Dec 17, 2022 Total Billed Treatment Time: 23 Total Billed Treatment 23 minutes: Gait 10'', W/C 8', FA 5' Rosita Ozuna PT Dec 17, 2022 13:34
--- NOTE | 2022-12-17 14:09 | Speech Therapy Progress Note ---
Therapy Progress Note Per administration request, the modified barium swallow has been rescheduled to December at 0915. Speech pathology will discuss the scheduling change and rationale with the patient at the patient's subsequent treatment session. MYLES SOTELO Dec 17, 2022 14:09
[2022-12-17 18:12] VITALS: BP 116/70
[2022-12-17] MEDS: MELATONIN 3 MG TABLET PO PRN (20:58)
[2022-12-17 21:20] VITALS: BP 93/58
--- NOTE | 2022-12-18 05:04 | PM&R Progress Note ---
Subjective HPI/CC On Admission Date Seen by Provider: Dec 18, 2022 Time Seen by Provider: 11:30 Subjective/Events-last exam 12/18/2022: Doing well Wants to go home soon Family at bedside NO major concerns 12/17/2022: Doing well Participating with therapy Standing with assist No pain Dysarthria noted Review of Systems General: Fatigue, Malaise Objective Exam Vital Signs Vital Signs Date Time Temp Pulse Resp B/P (MAP) Pulse Ox O2 Delivery O2 Flow Rate FiO2 12/18/22 20:55 Room Air 12/18/22 19:54 36.6 89 22 118/76 (90) 91 Capillary Refill : General Appearance: No Apparent Distress, WD/WN, Chronically ill HEENT: PERRL/EOMI, Normal ENT Inspection, Pharynx Normal Neck: Full Range of Motion, Normal Inspection, Non Tender, Supple, Carotid Bruit Respiratory: Chest Non Tender, Lungs Clear, No Accessory Muscle Use, No Respiratory Distress, Decreased Breath Sounds Cardiovascular: Regular Rate, Rhythm, No Edema, No Gallop, No JVD, No Murmur, Normal Peripheral Pulses Gastrointestinal: Normal Bowel Sounds, No Organomegaly, No Pulsatile Mass, Non Tender, Soft Back: Normal Inspection, No CVA Tenderness, No Vertebral Tenderness Extremity: Normal Capillary Refill, Normal Inspection, Normal Range of Motion, Non Tender, No Calf Tenderness, No Pedal Edema Neurologic/Psychiatric: Alert, Oriented x3, 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 FIM Transfers Therapy Code Descriptions/Definitions Functional [place] Measure: 0=Not Assessed/NA 4=Minimal Assistance 1=Total Assistance 5=Supervision or Setup 2=Maximal Assistance 6=Modified [place] 3=Moderate Assistance 7=Complete IndependenceSCALE: Activities may be completed with or without assistive devices. 6-Ukzozbquzl-lzxuzkj completes the activity by him/herself with no assistance from a helper. 5-Set-up or Clean-up Assistance-helper sets up or cleans up; patient completes activity. [place] assists only prior to or following the activity. 4-Supervision or Touching Assistance-helper provides verbal cues and/or touching/steadying and/or contact guard assistance as patient completes activity. Assistance may be provided throughout the activity or intermittently. 3-Partial/Moderate Assistance-helper does LESS THAN HALF the effort. [place] lifts, holds or supports trunk or limbs, but provides less than half the effort. 2-Substantial/Maximal Assistance-helper does MORE THAN HALF the effort. [place] lifts or holds trunk or limbs and provides more than half the effort. 7-Gbfnrlqxg-aqxbfy does ALL the effort. Patient does none of the effort to complete the activity. Or, the assistance of 2 or more helpers is required for the patient to complete the activity. If activity was not attempted, code reason: 7-Patient Refused. 9-Not Applicable-not attempted and the patient did not perform the activity before the current illness, exacerbation or injury. 10-Not Attempted due to Environmental Limitations-(lack of equipment, weather restraints, etc.). 88-Not Attempted due to Medical Conditions or Safety Concerns. Roll Left to Right (QC): 3 (Min (A) to roll (L) -- needed therapist to place (R) hand on bedrail for patient to pull. (I) rolling (R) with bedrail.) Sit to Lying (QC): 4 (CGA at end of session.) Sit to Stand (QC): 3 (min (A) of 1-2 from w/c x 3 using // bar. Stand to sit requires more mod (A) as patient shifts weight hard to (R) as he is sitting.) Chair/Jvl-qb-Wnhgk Xfer(QC): 3 (Swing pivot w/c<>bed using bedrail or arm of w/c min-mod (A) of 2.) Car Transfer (QC): 88 (Not safe today due to assist required for basic transfers.) Gait Training Does the Patient Walk?: Yes Walk 10 feet (QC): 1 (Mod-max (A) of 2 with 3rd person for w/c backup with FWW, leans heavily to (R), difficulty advancing (R) LE even with built-up sole on (L) LE. Scissors feet occasionally.) Walk 50 ft with 2 Turns(QC): 88 (Unable to cover 50' safely) Walk 150 ft (QC): 88 (Unable to cover 50' safely) Walking 10ft/uneven surface-QC: 88 (Unable to perform safely) Wheelchair Training Does the Pt Use a Wheelchair?: Yes Distance: 50 Wheel 50 ft with 2 turns (QC): 4 (Patient propelled w/c to/from gym using (B) LE's with prn cues and assist for (R) obstacles.) Wheel 150 ft (QC): 3 (Min (A) using (L) UE and feet, CGA using (B) LE's only with cues to avoid obstacles, min (A) using (L) UE and (L) LE ((R) foot on legrest).) Type of Wheelchair: Manual Stair Training 1 Step (curb) (QC): 88 4 Steps (QC): 88 12 Steps (QC): 88 Balance Picking up an Object (QC): 88 (unsafe to attempt in standing due to balance deficits.) ADL-Treatment Eating (QC): 5 Oral Hygiene (QC): 4 Shower/Bathe Self (QC): 1 Upper Body Dressing (QC): 3 Lower Body Dressing (QC): 1 On/Off Footwear (QC): 5 Toileting Hygiene (QC): 1 Assessment/Plan Assessment and Plan Assess & Plan/Chief Complaint Assessment: CVA Right sided weakness Dysphagia Smoker COPD Chronic cough HTN HLP Left eye blindness Plan: BP management Fall risk Aspiration risk PT OT protocol 12/17/2022: Monitor closely IS ST consult 12/18/2022: Aggressive rehab Monitor closely (1) CVA (cerebral vascular accident) YUMIKO LIZAMA DO Dec 18, 2022 05:04
--- NOTE | 2022-12-18 05:05 | Individualized Plan of Care ---
Individualized Plan of Care Rehab Nursing IPOC Order Admission Date Dec 16, 2022 at 15:50 Current Orders Orders Admission Order(Inpt,Obs,Sdc) (12/16/22 10:06) Vital Signs: Per Unit Policy ( 08,16,00 (12/16/22 10:06) Erik Theodore (12/16/22 10:06) Sequential Compression Device (12/16/22 10:06) Certified Nursing Assistant-Inpt Rehab Con (12/16/22 10:06) Rehab Nursing Orders-Ipoc (12/16/22 10:06) Physical Therapy Rehab Orders (12/16/22 10:06) Occupational Therapy Rehab Ord (12/16/22 10:06) Speech Therapy Rehab Orders (12/16/22 10:06) Cbc With Automated Diff (12/17/22 06:00) Comprehensive Metabolic Panel (12/17/22 06:00) Precautions (Aru) (12/16/22 10:06) Weekly Weight WEEK (12/16/22 10:06) Rehab-Intensity Of Therapy (12/16/22 10:06) Initiate Admission Nursing Pro .admission (12/16/22 10:06) Alprazolam Tablet (Xanax Tablet) (12/16/22 10:15) Calcium Carbonate Chew Tablet (Antacid C (12/16/22 10:15) Diphenhydramine Tablet (Benadryl Tablet) (12/16/22 10:15) Docusate Sodium Capsule (Colace Capsule) (12/16/22 21:00) Docusate Sodium Capsule (Colace Capsule) (12/16/22 10:15) Bisacodyl Suppository (Dulcolax Supposit (12/16/22 10:15) Lactulose Oral Solution (Enulose Oral So (12/16/22 10:15) Na Phos/Na Biphos Enema (Fleet Enema Davey (12/16/22 10:15) Guaifenesin/Codeine Syrup (Robitussin Ac (12/16/22 10:15) Loperamide Tablet (Imodium Tablet) (12/16/22 10:15) Melatonin Tablet (Melatonin Tablet) (12/16/22 10:15) Polyethylene Glycol Powder Pkt (Miralax (4/3/23 21:00) Ondansetron Oral Dissolve Tab (Zofran (12/16/22 10:15) Senna S Tablet (Senokot S Tablet) (12/16/22 21:00) Acetaminophen Tablet/Caplet (Tylenol T (12/16/22 10:15) Initiate Admission Nursing Pro .admission (12/16/22 10:06) Nursing Communication (Order) (12/16/22 15:51) Admission Arrival Bed Request (12/16/22 15:51) Aspirin Chewable Tablet (Baby Aspirin Ch (12/17/22 09:00) Atorvastatin Tablet (Lipitor Tablet) (12/16/22 21:00) Carvedilol Tablet (Coreg Tablet) (12/16/22 18:00) Clopidogrel Tablet (Plavix Tablet) (12/17/22 09:00) Lisinopril Tablet (Zestril Tablet) (12/17/22 09:00) (Nf) Ascorbic Acid (Vitamin C) (12/17/22 09:00) (Nf) Krill/Om-3/Dha/Epa/Phospho/Ast (Kri (12/17/22 09:00) (Nf) Vitamin E Mixed (Vitamin E) (12/17/22 09:00) Ascorbic Acid Tablet (Vitamin C Tablet) (12/17/22 08:00) Heart Healthy (12/16/22 Dinner) Dl-Alpha Tochopheryl Capsule (Vitamin E (12/17/22 09:00) [place] 3 Capsule (Fish Oil Capsule) (12/17/22 09:00) Patient Visit (12/17/22 ) Pt Eval High Complexity (12/17/22 ) Gait Training, Ea 15 Min (12/17/22 ) Wheelchair Mgmt/Propulsn 15min (12/17/22 ) Functional Activities, Ea 15 (12/17/22 ) Patient Visit (12/17/22 ) Gait Training, Ea 15 Min (12/17/22 ) Wheelchair Mgmt/Propulsn 15min (12/17/22 ) Ensure Plus Variety (12/17/22 15:11) Modified Barium Swallow (12/18/22 09:15) General/Regular (12/18/22 Lunch) Patient Visit (12/18/22 ) Dysphagia Asmnt-Mod Barium (12/18/22 ) Dysphagia Therapy (12/18/22 ) Patient Visit (12/18/22 ) Gait Training, Ea 15 Min (12/18/22 ) Exercise Therap, Ea 15 Min (12/18/22 ) Functional Activities, Ea 15 (12/18/22 ) Patient Visit (12/18/22 ) Exercise Therap, Ea 15 Min (12/18/22 ) Rehab Nursing Orders: Ongoing Assess. of Cognitive Status, Ongoing Assess. of Function Status, Bladder Management, Bladder Scan, Bladder Training, Bowel Management, Bowel Training, Disease Management & Educaiton, DVT Prophylaxis, Fall Prevention, Fluid/Electrolyte/Nutrition Mgmt, Infection Prevention, Medication Management & Education, Management of Risks & Complications, Management of Skin Intergrity, Nutrition Management, Pain Management, Patient/Family Support, Safety Management, Swallow Precautions Intensity of Therapy to be met Patient to be seen: Min.3h per day/5 of 7d PT IPOC Problem List: Activity Tolerance, Functional Strength, Safety, Balance, Gait, Transfer, Bed Mobility, ROM, Other (w/c propulsion) Treatment Plan: Continue Plan of Care Bed Mobility, Education, Functional Activity Talha, Functional Strength, Group Therapy, Gait, Safety, Therapeutic Exercise, Transfers, Other (W/C propulsion/management) Treatment Duration: January 14, 2023 Frequency: At least 5 of 7 days/Wk (IRF) Estimated Hrs Per Day: 1.5 hours per day OT IPOC Problems: Decreased Activ Tolerance, Decreased Safety Aware, Impaired Bed Mobility OT Treatment, Training and Edu: Yes Plan of Care: ADL Retraining, Functional Mobility, Group Exercise/Act as Ind, UE Funct Exercise/Act, UE Neuromus Re-Ed/Coord, Visual/Perceptual Retrain, W/C Management Training Treatment Duration: January 17, 2023 Frequency: At least 5 of 7 days/Wk (IRF) Estimated Hrs Per Day: 1.[address] IPOC Speech Therapy Treatment Plan: Continue Plan of Care Treatment Duration: Dec 18, 2022 Frequency: Modified Program (IRF) (Three to fives times per week.) Estimated Hrs Per Day: .5 hour per day Certified Nursing Assistant/Case Mgmt Certified Nursing Assistant/Case Managemen: Discharge Planning Dietitian/Ip Network Architect Dietitian/Ip Network Architect to monitor nutritional status and make changes and/or recommendations as needed and work with speech pathology on dietary upgrades as the occur. Physician IPOC Medical Issues being managed closely and that require the 24 hour availability of a physician: Recent catastrophic CVA with patient with COPD and labile HTN and dysarthria with dysphagia will require close medical supervision due to high risk for aspiration and decompensation Medical Issues: Bowel/Bladder Function, DVT Prophylaxis, Falls Precautions, Fluid/Electrolyte/Nutrition Balance, Infection Protection, Pain Management Brief Synthesis of Preadmission Screen, Post-Admission Evaluation, and Therapy Evaluations: PT OT will focus on regaining function with use of AD in order to return to independence with son and work on fall risk prevention Medical Prognosis: Fair Anticipated Length of Stay: 10 days YUMIKO LIZAMA DO Dec 18, 2022 05:04
[2022-12-18 07:58] VITALS: BP 152/90
[2022-12-18] MEDS: OMEGA 3 (FISH OIL) 1000 MG CAP PO SCH (08:28)
[2022-12-18] MEDS: CLOPIDOGREL 75 MG (PLAVIX) TABLET PO SCH (08:28)
[2022-12-18] MEDS: DOCUSATE SODIUM 100 MG (COLACE) CAP PO SCH ×2 (08:28→21:45)
[2022-12-18] MEDS: ASPIRIN 81 MG CHEW (CHILDREN'S ASA) PO SCH (08:28)
[2022-12-18] MEDS: lisINopril 40 MG (PRINIVIL) TABLET PO SCH (08:28)
[2022-12-18] MEDS: SENNA W/DOCUSATE (SENOKOT S) TABLET PO SCH ×2 (08:28→21:45)
[2022-12-18] MEDS: ASCORBIC ACID (VIT C) 500 MG TABLET PO SCH (08:29)
[2022-12-18] MEDS: polyethylene glycoL POWDER 17 GM (MIRALAX) PACK PO SCH ×2 (08:29→21:45)
[2022-12-18] MEDS: VITAMIN E 180 MG (400 UNITS) CAP PO SCH (08:29)
--- NOTE | 2022-12-18 08:58 | Speech Therapy Progress Note ---
Therapy Progress Note The ARU Plan of Care Meeting was re-scheduled for 10:30 on this date. Due to this, the clinician is available for completion of the modified barium swallow on this date. As the modified barium swallow is important for patient care and safety, the clinician assessed the patient's daily schedule for patient availability, contacted the remote scheduling department, contacted the radiology department at our facility, and received approval/permission to re- schedule the appointment to the date and time of December 18 at 0945. At this time, the patient is scheduled for a modified barium swallow at 0945 on this date. Results, recommendations, and an updated speech pathology plan of care will be provided immediately following completion of the study. MLYES SOTELO Dec 18, 2022 08:58
--- NOTE | 2022-12-18 09:57 | Speech Therapy Progress Note ---
Therapy Progress Note Speech pathology presented to the patient's room to provide an update on the scheduling and process of the modified barium swallowing evaluation. The patient stated, "Is my sister here?" The clinician stated she was unaware of his sister being present, however, she would check the floor and surrounding areas. The patient's sister is not present or located at this time by the clinician. Per patient, "I'm not doing anything until I can talk to my sister. She should be here today." The clinician provided gentle listening and support. The clinician requested the patient's sister's contact information but he patient stated he did not have a phone with the information present and did not know his sister's number. The patient requested his schedule for the day be read by the clinician. The times of each treatment session were provided by this therapist. Again the patient stated, "I'm not doing that without talking to my sister." The clinician provided encouragement and understanding to the patient, stating the sister could be present or participate in any therapy scheduled or remain in his room to wait for therapy to be completed. The patient continued to state, "I'll wait on her." A rationale for the necessity of his sister was not provided by the patient. The clinician discussed the importance of the modified barium swallow and politely requested the patient participate to advance his diet consistency recommendations and better guide his therapy plan of care. The patient reluctantly agreed and requested the time of the appointment and the length he would be away from his room. All information was provided and the clinician ensured the patient if his sister arrives while he is away, she will provide any and all recommendations to her. At this time, the patient agrees with participation in the study. As the patient refused blood pressure medication on this date, the clinician wanted to request additional information to ensure it was not due to a swallowing issue or concern. The patient denied a swallowing concern and again stated, "I'm waiting on my sister." The patient remained calm and polite to the clinician throughout all interactions regardless of stated refusal. MYLES SOTELO Dec 18, 2022 09:57
--- NOTE | 2022-12-18 11:13 | Diagnostic Imaging Report ---
INDICATION: Dysphasia. Procedure was performed in conjunction with speech pathology. Video fluoroscopy was performed during swallowing of barium multiple consistencies. Total of 1.7 minutes of fluoroscopic time was utilized. Patient ingested thin as well as nectar and honey consistency barium. In addition, patient ingested applesauce and cracker consistency. There were episodes of penetration and aspiration during swallowing of thin barium with a spoon and a cup as well as while performing chin tuck maneuver. Laryngeal penetration was also observed during swallowing of nectar and honey thickened consistencies. Applesauce and cracker consistencies were essentially unremarkable. Minimal residue was noted which would clear with a 2nd swallow. IMPRESSION: Abnormal modified barium swallow demonstrating episodes of aspiration during swallowing of thin barium. There are also multiple episodes of laryngeal penetration with other consistencies, as described above. Dictated by: Dictated on workstation # [id number]
--- NOTE | 2022-12-18 13:51 | Occupational Ther Daily Note ---
OT Current Status-Daily Note Subjective Pt alert, sitting in recliner. Pt agrees to therapy. No c/o pain at this time. PT/OT co-treat ([id number]), skills of 2 clinicians required to decrease fall risk, increase safe transfers and mobility. Pt focusing on transfers, ambulation while OT focusing on R UE placement and functional mobility. Mental Status/Objective Patient Orientation: Person, Place, Time, Situation ADL-Treatment Pt declines all ADLs. Therapy Code Descriptions/Definitions Functional [place] Measure: 0=Not Assessed/NA 4=Minimal Assistance 1=Total Assistance 5=Supervision or Setup 2=Maximal Assistance 6=Modified [place] 3=Moderate Assistance 7=Complete IndependenceSCALE: Activities may be completed with or without assistive devices. 6-Zvabosypld-bmohqui completes the activity by him/herself with no assistance from a helper. 5-Set-up or Clean-up Assistance-helper sets up or cleans up; patient completes activity. [place] assists only prior to or following the activity. 4-Supervision or Touching Assistance-helper provides verbal cues and/or touching/steadying and/or contact guard assistance as patient completes activity. Assistance may be provided throughout the activity or intermittently. 3-Partial/Moderate Assistance-helper does LESS THAN HALF the effort. [place] lifts, holds or supports trunk or limbs, but provides less than half the effort. 2-Substantial/Maximal Assistance-helper does MORE THAN HALF the effort. [place] lifts or holds trunk or limbs and provides more than half the effort. 1-Zidtnstdb-adcbga does ALL the effort. Patient does none of the effort to complete the activity. Or, the assistance of 2 or more helpers is required for the patient to complete the activity. If activity was not attempted, code reason: 7-Patient Refused. 9-Not Applicable-not attempted and the patient did not perform the activity before the current illness, exacerbation or injury. 10-Not Attempted due to Environmental Limitations-(lack of equipment, weather restraints, etc.). 88-Not Attempted due to Medical Conditions or Safety Concerns. Other Treatment Pt requires cues for R UE/LE placement for safe transfer, min A. Pt propels w/c to therapy gym with min A. Pt working on ambulation utilizing B UE with parallel bars and FWW. VENTURA assisted with positioning and decreasing fall risk during all standing/ambulation tasks. See PT notes for ambulation progress. Pt is demonstrating good strength with R UE though decrease in coordinating functional movements. Pt is able to wt bear on R UE though requires cues to focus on positioning R hand correctly. Pt able to stand and grasp item with L UE then transfer it to R UE without arm support for balance. Pt then working on voluntary release of objects toward designated area, 25% accuracy. After session, pt sitting in recliner with call light/phone in reach. All needs met in room. OT Short Term Goals Short Term Goals Time Frame: Jan 03, 2023 Shower/bathe self: 2 Lower body dressin OT Shock Absorption Floor Layer Goals Shock Absorption Floor Layer Goals Time Frame: January 17, 2023 Acute change in mental status: 1 Inattention: 2 Disorganized thinkin Altered level of consciousness: 0 Eating (QC): 6 Oral Hygiene (QC): 6 Toileting Hygiene (QC): 4 Shower/Bathe Self (QC): 4 Upper Body Dressing (QC): 4 Lower Body Dressing (QC): 4 On/Off Footwear (QC): 4 Additional Goals: 1-Demonstrate ADL Tasks, 2-Verbalize Understanding, 3- ImproveStrength/Talha 1=Demonstrate adherence to instructed precautions during ADL tasks. 2=Patient will verbalize/demonstrate understanding of assistive devices/modifications for ADL. 3=Patient will improve strength/tolerance for activity to enable patient to perform ADL's. OT Education/Plan Problem List/Assessment Assessment: Decreased Activ Tolerance, Decreased Safety Aware, Decreased UE Strength, Impaired Coordination, Impaired Funct Balance, Restricted Funct UE ROM, Visual-Perceptual Deficit Discharge Recommendations Plan/Recommendations: Continue POC Treatment Plan/Plan of Care Patient would benefit from OT for education, treatment and training to promote independence in ADL's, mobility, safety and/or upper extremity function for ADL's. Plan of Care: ADL Retraining, Functional Mobility, Group Exercise/Act as Ind, UE Funct Exercise/Act, UE Neuromus Re-Ed/Coord, Visual/Perceptual Retrain, W/C Management Training Treatment Duration: January 17, 2023 Frequency: At least 5 of 7 days/Wk (IRF) Estimated Hrs Per Day: 1.5 hours per day Agreement: Yes Rehab Potential: Fair Time Start Time: 11:00 Stop Time: 12:00 DATE: Dec 18, 2022 Total Time Billed (hr/min): 60 Billed Treatment Time 1 visit-NM 4 (60 min) co-treat with PT 60 min JHOANA GRACE Dec 18, 2022 13:51
--- NOTE | 2022-12-18 13:55 | Occupational Ther Daily Note ---
OT Current Status-Daily Note Subjective Pt alert, sitting in recliner. Pt's family is present in room. Pt agrees to therapy. No c/o pain. Mental Status/Objective Patient Orientation: Person, Place, Time, Situation ADL-Treatment Therapy Code Descriptions/Definitions Functional [place] Measure: 0=Not Assessed/NA 4=Minimal Assistance 1=Total Assistance 5=Supervision or Setup 2=Maximal Assistance 6=Modified [place] 3=Moderate Assistance 7=Complete IndependenceSCALE: Activities may be completed with or without assistive devices. 3-Rfwrxqudgc-fwmcben completes the activity by him/herself with no assistance from a helper. 5-Set-up or Clean-up Assistance-helper sets up or cleans up; patient completes activity. [place] assists only prior to or following the activity. 4-Supervision or Touching Assistance-helper provides verbal cues and/or touching/steadying and/or contact guard assistance as patient completes activity. Assistance may be provided throughout the activity or intermittently. 3-Partial/Moderate Assistance-helper does LESS THAN HALF the effort. [place] lifts, holds or supports trunk or limbs, but provides less than half the effort. 2-Substantial/Maximal Assistance-helper does MORE THAN HALF the effort. [place] lifts or holds trunk or limbs and provides more than half the effort. 0-Lgtqebgwm-pkcktd does ALL the effort. Patient does none of the effort to complete the activity. Or, the assistance of 2 or more helpers is required for the patient to complete the activity. If activity was not attempted, code reason: 7-Patient Refused. 9-Not Applicable-not attempted and the patient did not perform the activity before the current illness, exacerbation or injury. 10-Not Attempted due to Environmental Limitations-(lack of equipment, weather restraints, etc.). 88-Not Attempted due to Medical Conditions or Safety Concerns. Other Treatment Pt working on R UE coordination with B UE exercises/ROM. Pt requires skilled instruction for correct positioning and movement. Pt requires focus on R UE during exercises and movement for correct placement throughout. Pt requires physical cues to initiate and follow through with functional movement. After therapy, pt sitting in recliner with call light/phone in reach. Safety measures in place. All needs met. OT Short Term Goals Short Term Goals Time Frame: Jan 03, 2023 Shower/bathe self: 2 Lower body dressin OT Manager Field Service Goals Manager Field Service Goals Time Frame: January 17, 2023 Acute change in mental status: 1 Inattention: 2 Disorganized thinkin Altered level of consciousness: 0 Eating (QC): 6 Oral Hygiene (QC): 6 Toileting Hygiene (QC): 4 Shower/Bathe Self (QC): 4 Upper Body Dressing (QC): 4 Lower Body Dressing (QC): 4 On/Off Footwear (QC): 4 Additional Goals: 1-Demonstrate ADL Tasks, 2-Verbalize Understanding, 3- ImproveStrength/Tahla 1=Demonstrate adherence to instructed precautions during ADL tasks. 2=Patient will verbalize/demonstrate understanding of assistive devices/mod ifications for ADL. 3=Patient will improve strength/tolerance for activity to enable patient to perform ADL's. OT Education/Plan Problem List/Assessment Assessment: Decreased Safety Aware, Decreased UE Strength, Impaired Cognition, Impaired Coordination, Impaired Funct Balance, Impaired Self-Care Skills, Visual-Perceptual Deficit Discharge Recommendations Plan/Recommendations: Continue POC Treatment Plan/Plan of Care Patient would benefit from OT for education, treatment and training to promote independence in ADL's, mobility, safety and/or upper extremity function for ADL's. Plan of Care: ADL Retraining, Functional Mobility, Group Exercise/Act as Ind, UE Funct Exercise/Act, UE Neuromus Re-Ed/Coord, Visual/Perceptual Retrain, W/C Management Training Treatment Duration: January 17, 2023 Frequency: At least 5 of 7 days/Wk (IRF) Estimated Hrs Per Day: 1.5 hours per day Agreement: Yes Rehab Potential: Fair Time Start Time: 12:45 Stop Time: 13:00 DATE: Dec 18, 2022 Total Time Billed (hr/min): 15 Billed Treatment Time 1 visit-NM 1 (15 min) JHOANA GRACE Dec 18, 2022 13:55
--- NOTE | 2022-12-18 14:32 | ST Mod Barium Swallow ---
Speech Evaluation-General Medical Diagnosis s/p CVA Onset Date: Dec 11, 2022 Therapy Diagnosis Therapy Diagnosis: Moderate Oropharyngeal Dysphagia Referral Referring Physician: Dr. Gabriela Rose Reason for Referral: Evaluation/Treatment Medical History Pertinent Medical History: CAD, CVA, HTN, [place], Smoking Reviewed History: Yes Social History Current Living Status: Children (son) Speech Mod Barium Swallow Prior Level of Function Please refer to documentation regarding prior level of function located throughout the clinical bedside swallowing evaluation completed on 12/17/22. Oral Motor Skills Dentition Comments: Natural, sparse dentition appreciated. Lingual Protrusion: Normal Lingual ROM: Normal Lingual Strength: Normal Volitional Dry Swallow: Yes Voluntary Cough: Yes Can Clear Throat Volitionally: Yes Textures-Lateral View Lateral View Food Presentation: Thin Liquid via Spoon, Thin Liquid via Cup, [place] Liquid via Spoon, [place] Liquid via Cup, Honey Liquid via Spoon, Honey Liquid via Cup, Pureed Solids, Regular Solids Oral Phase Labial Closure: No Impairment (WFL) Bolus Formation Pooling L/R: Moderate Impairment Bolus Formation Placement: Moderate Impairment Mastication Rotary Chew: No Impairment (WFL) A/P Lingual Propulsion: No Impairment (WFL) Lingual Movement: No Impairment (WFL) The patient demonstrated trace anterior bolus loss of thin liquid material to the interlabial space. Consistent pooling of liquid bolus material was appreciated in the bilateral, inferior buccal regions. Premature bolus loss was visualized of thin liquids into the open laryngeal vestibule (laryngeal penetration prior to the swallow) and the pyriform sinuses. Pharyngeal Phase Swallow Response: Mild Impairment Base of Tongue: No Impairment (WFL) Epiglottic Movement: Moderate Impairment Laryngeal Elevation: No Impairment (WFL) Vallecular Residue: No Impairment (WFL) Pharyngeal Wall Residue: No Impairment (WFL) Piriform Sinus Residue: Moderate Laryngeal Penetration: Moderate (thin liquid, mildly thick liquids, moderately thick liquids. ) Aspiration Observations: Mild (Thin liquid.) The patient displayed a mild to moderate delay in the pharyngeal swallow, with the bolus head reaching the laryngeal surface of the epiglottis prior to swallow initiation. Intact hyo-laryngeal excursion and laryngeal elevation were present with complete, yet delayed, epiglottic inversion. The premature spillage resulting in laryngeal penetration prior to the swallow with thin liquids, led to silent aspiration (mild) of thin liquids during the swallow. The pharyngeal swallow delay, leading to a delay in complete epiglottic inversion and airway protection resulted in laryngeal penetration of thin liquid, mildly thick liquids, and moderately thick liquids during the swallow. Additionally, deep laryngeal penetration was observed of moderate pyriform sinus residue (mixed consistencies) following the swallow. A cued throat clear reduced the laryngeal penetration material which remained deep in the laryngeal vestibule with mildly thick liquids tested. A cued cough was not efficient at clearing the silently aspirated thin liquid material following the swallow. A second, cued dry swallow was effective at reducing pyriform sinus residue. Intact base of tongue retraction, pharyngeal contractions, and cricopharyngeal relaxation were present. A chin tuck was not efficient at reducing or eliminating deep laryngeal penetration or aspiration during the swallow. Performed-A/P View Not Applicable/Performed Summary/Impressions The patient demonstrated moderate oropharyngeal dysphagia characterized by poor lingual and oral coordination, a delayed onset of the pharyngeal swallow, delayed epiglottic inversion, and decreased laryngeal sensation in the presence of bolus material. Silent aspiration was visualized with thin liquids via cup edge during the swallow. Laryngeal penetration was observed with thin liquid, nectar-thick liquid, and honey-thick liquids during the swallow (teaspoon and cup edge). A cued throat clear with a second, dry swallow was efficient at eliminating material which remained deep in the laryngeal vestibule following penetration of mildly thick liquids. Recommendations: - Regular consistency diet with mildly-thick liquids, as tolerated. - Fully upright and alert for P.O. intake. - Throat clearing following each swallow of mildly-thick liquids with a subsequent second, dry swallow. - Single, small bites and drinks, only. - Monitor for s/s of suspected aspiration with P.O. intake. If demonstrated, please contact speech pathology. Speech pathology provided results and recommendations to the patient, the patient's family members, and the RN. A sign was placed in the patient's room with the recommendations and safe swallowing precautions. The patient denied additional questions or concerns for the clinician at this time. Speech Short Term Goals Short Term Goals Short Term Goals 1. The patient will display safe swallowing precautions with 80% accuracy, independently. Time Frame-STG: Five Days. Speech Long-Term Goals Long-Term Goals 1. The patient will tolerate the least restrictive diet consistency without s/s of suspected aspiration. Time Frame: One Week. Speech-Plan Treatment Plan Speech Therapy Treatment Plan: Continue Plan of Care Treatment Duration: Dec 18, 2022 Frequency: Modified Program (IRF) (Three to fives times per week.) Estimated Hrs Per Day: .5 hour per day Rehab Potential: Fair Pt/Family Agrees to Plan: Yes Safety Risks/Education Teaching Recipient: Patient, Family Teaching Methods: Handout, Discussion Response to Teaching: Reinforcement Needed Education Topics Provided: Safe Swallowing Precautions, Results, Recommendations Time Speech Therapy Time In: 10:00 Speech Therapy Time Out: 10:30 DATE: Dec 18, 2022 Total Billed Time: 30 Billed Treatment Time 1, MOD, DYST MYLES SOTELO Dec 18, 2022 14:32
--- NOTE | 2022-12-18 16:01 | Physical Therapy Daily Note ---
PT Daily Note-Current Subjective Pt found seated in recliner upon entry. Agreed to PT. PT/OT co-treatment for safety and energy conservation. Pt reports that he is not having any pain. States that he did not sleep well last night but he did the night before. Pain Section J - Health Conditions 1. Rarely or not at all 2. Occasionally 3. Frequently 4. Almost constantly 8. Unable to answer Pain Effect on Sleep: 1 Pain Interference with Therapy: 1 Pain Interference w/Day-to-Day: 1 Mental Status Patient Orientation: Person, Confused Transfers SCALE: Activities may be completed with or without assistive devices. 3-Rnxkninabe-mwlquog completes the activity by him/herself with no assistance from a helper. 5-Set-up or Clean-up Assistance-helper sets up or cleans up; patient completes activity. [place] assists only prior to or following the activity. 4-Supervision or Touching Assistance-helper provides verbal cues and/or touching/steadying and/or contact guard assistance as patient completes activity. Assistance may be provided throughout the activity or intermittently. 3-Partial/Moderate Assistance-helper does LESS THAN HALF the effort. [place] lifts, holds or supports trunk or limbs, but provides less than half the effort. 2-Substantial/Maximal Assistance-helper does MORE THAN HALF the effort. [place] lifts or holds trunk or limbs and provides more than half the effort. 2-Cfqfgldrw-vzmsat does ALL the effort. Patient does none of the effort to complete the activity. Or, the assistance of 2 or more helpers is required for the patient to complete the activity. If activity was not attempted, code reason: 7-Patient Refused. 9-Not Applicable-not attempted and the patient did not perform the activity before the current illness, exacerbation or injury. 10-Not Attempted due to Environmental Limitations-(lack of equipment, weather restraints, etc.). 88-Not Attempted due to Medical Conditions or Safety Concerns. Sit to Stand (QC): 3 Chair/Ckn-jq-Vjqif Xfer(QC): 3 MOD assist with completed transfers due to lack of safety awareness and R sided weakness. Weight Bearing Full Weight Bearing Full Weight Bearing Pushes significantly toward (R)/affected side Gait Training Does the Patient Walk?: Yes Distance: // x 6 trips (Parallel bars). 10 feet, 20 feet x 2 (FWW). Walk 10 feet (QC): 1 Gait Persons Needed: 2 Gait Assistive Device: FWW Pt completed forward/backwards ambulation at parallel bars x 6 trips. Ambulates with FWW with 2-person MOD assist due to lack of safety awareness and R sided weakness. Completes 50 feet total gait training with FWW. Pt required verbal cues for slower step pattern. Displays slight scissoring during gait cycle. Wheelchair Training Does the Pt Use a Wheelchair?: Yes Wheel 50 ft with 2 turns (QC): 3 Type of Wheelchair: Manual MIN assist to avoid objects on R side. Treatments Standing exercise: Side-stepping YTB x 3 trips at // Marching YTB x 15 B Stepping on/off objects at parallel bars x 1 trip /c 2 objects Hamstring curls x 15 B Heel/toe raises x 15 Assessment Current Status: Good Progress Pt able to progress to FWW /c ambulation this visit. Demonstrated signs of fatigue near end of visit. Displays scissoring with gait cycle. Occasionally loses balance during gait training and requires steadying assistance from helpers. Continue to progress pt as tolerated per POC to improve gait cycle, endurance, functional ability, and strength. PT Prison Goals Cardiovascular Rn Goals PT Cardiovascular Rn Goals Time Frame: January 14, 2023 Roll Left & Right (QC): 6 Sit to Lying (QC): 5 Lying-Sitting on Side/Bed(QC): 5 Sit to Stand (QC): 3 (Min (A) of 1) Chair/Gru-ov-Ulsoc Xfer(QC): 3 (Min (A) of 1) Toilet Transfer (QC): 3 (Min (A) of 1) Car Transfer (QC): 3 (Min (A) of 1) Does the Patient Walk: Yes Walk 10 feet (QC): 3 (Mod (A) of 1 with least restrictive device) Walk 50ft with 2 Turns (QC): 3 (mod (A) of 1 with least restrictive device) Walk 150 ft (QC): 88 Walking 10ft on Uneven Surface: 88 1 Step (curb) (QC): 88 4 Steps (QC): 88 12 Steps (QC): 88 Picking up an Object (QC): 3 (mod (A) of 1 with FWW and bow maker gift wrapping) Does the Pt use WC or Scooter?: Yes Wheel 50 feet with 2 turns (QC: 5 Type: Manual Wheel 150 feet: 5 PT Plan Treatment/Plan Treatment Plan: Continue Plan of Care Treatment Plan: Bed Mobility, Education, Functional Activity Talha, Functional Strength, Group Therapy, Gait, Safety, Therapeutic Exercise, Transfers, Other (W/C propulsion/management) Treatment Duration: January 14, 2023 Frequency: At least 5 of 7 days/Wk (IRF) Estimated Hrs Per Day: 1.5 hours per day Patient and/or Family Agrees t: Yes Time Time In: 1100 Time Out: 1200 DATE: Dec 18, 2022 Total Billed Treatment Time: 60 Total Billed Treatment 1 visit GT x 2 EX x 1 FA x 1 Co-treatment: 60 minutes Total treatment: 60 minutes MONO JARAMILLO PTA Dec 18, 2022 16:01
--- NOTE | 2022-12-18 16:12 | Physical Therapy Daily Note ---
PT Daily Note-Current Subjective Pt found seated in recliner upon entry /c family present. Agreed to PT. States that he is a little tired from earlier visit but is not having any pain. Pain Section J - Health Conditions 1. Rarely or not at all 2. Occasionally 3. Frequently 4. Almost constantly 8. Unable to answer Pain Effect on Sleep: 1 Pain Interference with Therapy: 1 Pain Interference w/Day-to-Day: 1 Mental Status Patient Orientation: Person Transfers SCALE: Activities may be completed with or without assistive devices. 5-Tbhgfthaal-heskbhd completes the activity by him/herself with no assistance from a helper. 5-Set-up or Clean-up Assistance-helper sets up or cleans up; patient completes activity. [place] assists only prior to or following the activity. 4-Supervision or Touching Assistance-helper provides verbal cues and/or touching/steadying and/or contact guard assistance as patient completes activity. Assistance may be provided throughout the activity or intermittently. 3-Partial/Moderate Assistance-helper does LESS THAN HALF the effort. [place] lifts, holds or supports trunk or limbs, but provides less than half the effort. 2-Substantial/Maximal Assistance-helper does MORE THAN HALF the effort. [place] lifts or holds trunk or limbs and provides more than half the effort. 9-Zbemjwgna-fjxbvz does ALL the effort. Patient does none of the effort to complete the activity. Or, the assistance of 2 or more helpers is required for the patient to complete the activity. If activity was not attempted, code reason: 7-Patient Refused. 9-Not Applicable-not attempted and the patient did not perform the activity before the current illness, exacerbation or injury. 10-Not Attempted due to Environmental Limitations-(lack of equipment, weather restraints, etc.). 88-Not Attempted due to Medical Conditions or Safety Concerns. Weight Bearing Full Weight Bearing Full Weight Bearing Pushes significantly toward (R)/affected side Gait Training Does the Patient Walk?: No and Walking Goal IS indicated Treatments Seated exercises: LAQs x 10 B Hip add /c ball x 10 B Marching x 10 B Hip abd YTB x 10 B Heel/toe raises x 10 B Heel slides YTB x 10 B Assessment Current Status: Good Progress Pt demonstrates good muscle strength and endurance with completion of therapeutic exercises. No displays muscle fatigue throughout. Pt required no rest breaks during treatment. Continue to progress pt per POC to improve strength, endurance, and functional ability. PT Grab Operator Goals Grab Operator Goals PT Grab Operator Goals Time Frame: January 14, 2023 Roll Left & Right (QC): 6 Sit to Lying (QC): 5 Lying-Sitting on Side/Bed(QC): 5 Sit to Stand (QC): 3 (Min (A) of 1) Chair/Zki-qc-Tobng Xfer(QC): 3 (Min (A) of 1) Toilet Transfer (QC): 3 (Min (A) of 1) Car Transfer (QC): 3 (Min (A) of 1) Does the Patient Walk: Yes Walk 10 feet (QC): 3 (Mod (A) of 1 with least restrictive device) Walk 50ft with 2 Turns (QC): 3 (mod (A) of 1 with least restrictive device) Walk 150 ft (QC): 88 Walking 10ft on Uneven Surface: 88 1 Step (curb) (QC): 88 4 Steps (QC): 88 12 Steps (QC): 88 Picking up an Object (QC): 3 (mod (A) of 1 with FWW and truck body builder) Does the Pt use WC or Scooter?: Yes Wheel 50 feet with 2 turns (QC: 5 Type: Manual Wheel 150 feet: 5 PT Plan Treatment/Plan Treatment Plan: Continue Plan of Care Treatment Plan: Bed Mobility, Education, Functional Activity Talha, Functional Strength, Group Therapy, Gait, Safety, Therapeutic Exercise, Transfers, Other (W/C propulsion/management) Treatment Duration: January 14, 2023 Frequency: At least 5 of 7 days/Wk (IRF) Estimated Hrs Per Day: 1.5 hours per day Patient and/or Family Agrees t: Yes Time Time In: 1330 Time Out: 1345 DATE: Dec 18, 2022 Total Billed Treatment Time: 15 Total Billed Treatment 1 visit EX x 1 CL[place]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
[2022-12-18 19:54] VITALS: BP 118/76
[2022-12-18] MEDS: MELATONIN 3 MG TABLET PO PRN (20:29)
--- NOTE | 2022-12-19 06:22 | PM&R Progress Note ---
Subjective HPI/CC On Admission Date Seen by Provider: Dec 19, 2022 Time Seen by Provider: 12:00 Subjective/Events-last exam 12/19/2022: Doing well Monitoring closely Walking with assist Impulsive 1-on-1 sitter likely will be required 12/18/2022: Doing well Wants to go home soon Family at bedside NO major concerns 12/17/2022: Doing well Participating with therapy Standing with assist No pain Dysarthria noted Review of Systems General: Fatigue, Malaise Neurological: Weakness, Incoordination Objective Exam Vital Signs Vital Signs Date Time Temp Pulse Resp B/P (MAP) Pulse Ox O2 Delivery O2 Flow Rate FiO2 12/19/22 21:40 92 Room Air 12/19/22 19:33 36.8 84 22 113/75 (88) Capillary Refill : General Appearance: No Apparent Distress, WD/WN, Chronically ill HEENT: PERRL/EOMI, Normal ENT Inspection, Pharynx Normal Neck: Full Range of Motion, Normal Inspection, Non Tender, Supple, Carotid Bruit Respiratory: Chest Non Tender, Lungs Clear, No Accessory Muscle Use, No Respiratory Distress, Decreased Breath Sounds Cardiovascular: Regular Rate, Rhythm, No Edema, No Gallop, No JVD, No Murmur, Normal Peripheral Pulses Gastrointestinal: Normal Bowel Sounds, No Organomegaly, No Pulsatile Mass, Non Tender, Soft Back: Normal Inspection, No CVA Tenderness, No Vertebral Tenderness Extremity: Normal Capillary Refill, Normal Inspection, Normal Range of Motion, Non Tender, No Calf Tenderness, No Pedal Edema Neurologic/Psychiatric: Alert, Oriented x3, Abnormal group program manager II-XII, Abnormal Gait, Aphasia, Depressed Affect, Disoriented, Facial Droop, Motor Weakness (right sided 2/5) Skin: Normal Color, Warm/Dry Lymphatic: No Adenopathy Results/Procedures Lab Patient resulted labs reviewed. FIM Transfers Therapy Code Descriptions/Definitions Functional [place] Measure: 0=Not Assessed/NA 4=Minimal Assistance 1=Total Assistance 5=Supervision or Setup 2=Maximal Assistance 6=Modified [place] 3=Moderate Assistance 7=Complete IndependenceSCALE: Activities may be completed with or without assistive devices. 7-Rfwjpogdhd-fgvhtuv completes the activity by him/herself with no assistance from a helper. 5-Set-up or Clean-up Assistance-helper sets up or cleans up; patient completes activity. [place] assists only prior to or following the activity. 4-Supervision or Touching Assistance-helper provides verbal cues and/or touchi ng/steadying and/or contact guard assistance as patient completes activity. Assistance may be provided throughout the activity or intermittently. 3-Partial/Moderate Assistance-helper does LESS THAN HALF the effort. [place] lifts, holds or supports trunk or limbs, but provides less than half the effort. 2-Substantial/Maximal Assistance-helper does MORE THAN HALF the effort. [place] lifts or holds trunk or limbs and provides more than half the effort. 2-Vhijwyxbt-chzlsp does ALL the effort. Patient does none of the effort to complete the activity. Or, the assistance of 2 or more helpers is required for the patient to complete the activity. If activity was not attempted, code reason: 7-Patient Refused. 9-Not Applicable-not attempted and the patient did not perform the activity before the current illness, exacerbation or injury. 10-Not Attempted due to Environmental Limitations-(lack of equipment, weather restraints, etc.). 88-Not Attempted due to Medical Conditions or Safety Concerns. Roll Left to Right (QC): 3 (Min (A) to roll (L) -- needed therapist to place (R) hand on bedrail for patient to pull. (I) rolling (R) with bedrail.) Sit to Lying (QC): 4 (CGA at end of session.) Sit to Stand (QC): 3 Chair/Olk-qx-Nctvz Xfer(QC): 3 Car Transfer (QC): 88 (Not safe today due to assist required for basic transfers.) Gait Training Does the Patient Walk?: No and Walking Goal IS indicated Distance: // x 6 trips (Parallel bars). 10 feet, 20 feet x 2 (FWW). Walk 10 feet (QC): 1 Walk 50 ft with 2 Turns(QC): 88 (Unable to cover 50' safely) Walk 150 ft (QC): 88 (Unable to cover 50' safely) Walking 10ft/uneven surface-QC: 88 (Unable to perform safely) Gait Persons Needed: 2 Gait Assistive Device: FWW Wheelchair Training Does the Pt Use a Wheelchair?: Yes Distance: 50 Wheel 50 ft with 2 turns (QC): 3 Wheel 150 ft (QC): 3 (Min (A) using (L) UE and feet, CGA using (B) LE's only with cues to avoid obstacles, min (A) using (L) UE and (L) LE ((R) foot on legrest).) Type of Wheelchair: Manual Stair Training 1 Step (curb) (QC): 88 4 Steps (QC): 88 12 Steps (QC): 88 Balance Picking up an Object (QC): 88 (unsafe to attempt in standing due to balance deficits.) ADL-Treatment Eating (QC): 5 Oral Hygiene (QC): 4 Shower/Bathe Self (QC): 1 Upper Body Dressing (QC): 3 Lower Body Dressing (QC): 1 On/Off Footwear (QC): 5 Toileting Hygiene (QC): 1 Assessment/Plan Assessment and Plan Assess & Plan/Chief Complaint Assessment: CVA Right sided weakness Dysphagia Smoker COPD Chronic cough HTN HLP Left eye blindness Plan: BP management Fall risk Aspiration risk PT OT protocol 12/17/2022: Monitor closely IS ST consult 12/18/2022: Aggressive rehab Monitor closely 12/19/2022: Monitor for falls (1) CVA (cerebral vascular accident) YUMIKO LIZAMA DO Dec 19, 2022 06:22
[2022-12-19 07:28] VITALS: BP 142/93
[2022-12-19 08:10] VITALS: BP 134/94
[2022-12-19] MEDS: ASPIRIN 81 MG CHEW (CHILDREN'S ASA) PO SCH (09:14)
[2022-12-19] MEDS: SENNA W/DOCUSATE (SENOKOT S) TABLET PO SCH ×2 (09:14→20:08)
[2022-12-19] MEDS: VITAMIN E 180 MG (400 UNITS) CAP PO SCH (09:14)
[2022-12-19] MEDS: OMEGA 3 (FISH OIL) 1000 MG CAP PO SCH (09:15)
[2022-12-19] MEDS: CLOPIDOGREL 75 MG (PLAVIX) TABLET PO SCH (09:15)
[2022-12-19] MEDS: lisINopril 40 MG (PRINIVIL) TABLET PO SCH (09:15)
[2022-12-19] MEDS: ASCORBIC ACID (VIT C) 500 MG TABLET PO SCH (09:15)
[2022-12-19] MEDS: DOCUSATE SODIUM 100 MG (COLACE) CAP PO SCH ×2 (09:15→20:08)
[2022-12-19] MEDS: polyethylene glycoL POWDER 17 GM (MIRALAX) PACK PO SCH ×2 (09:15→20:09)
--- NOTE | 2022-12-19 09:29 | Occupational Ther Daily Note ---
OT Current Status-Daily Note Subjective Pt alert, sitting in recliner. Pt has live sitter, telesitter and chair alarm for safety. Pt agrees to therapy. No c/o pain. Mental Status/Objective Patient Orientation: Person, Place, [place] ADL-Treatment Pt declines all ADLs. Therapy Code Descriptions/Definitions Functional [place] Measure: 0=Not Assessed/NA 4=Minimal Assistance 1=Total Assistance 5=Supervision or Setup 2=Maximal Assistance 6=Modified [place] 3=Moderate Assistance 7=Complete IndependenceSCALE: Activities may be completed with or without assistive devices. 7-Gsqvaefrrd-gjgfudw completes the activity by him/herself with no assistance from a helper. 5-Set-up or Clean-up Assistance-helper sets up or cleans up; patient completes activity. [place] assists only prior to or following the activity. 4-Supervision or Touching Assistance-helper provides verbal cues and/or touching/steadying and/or contact guard assistance as patient completes activity. Assistance may be provided throughout the activity or intermittently. 3-Partial/Moderate Assistance-helper does LESS THAN HALF the effort. [place] lifts, holds or supports trunk or limbs, but provides less than half the effort. 2-Substantial/Maximal Assistance-helper does MORE THAN HALF the effort. [place] lifts or holds trunk or limbs and provides more than half the effort. 6-Ssyhsgzkt-ajfhaq does ALL the effort. Patient does none of the effort to complete the activity. Or, the assistance of 2 or more helpers is required for the patient to complete the activity. If activity was not attempted, code reason: 7-Patient Refused. 9-Not Applicable-not attempted and the patient did not perform the activity before the current illness, exacerbation or injury. 10-Not Attempted due to Environmental Limitations-(lack of equipment, weather restraints, etc.). 88-Not Attempted due to Medical Conditions or Safety Concerns. Other Treatment Min A to propel w/c, mod A to steer w/c. Mod A for SPT toward R side, min A for SPT toward L side. Pt completed B UE exercises to increase strength and coordination of R UE. Skilled therapy for correct technique and modifications for all exercises and ROM tasks. Arm bike for 8 min-25 oseguera resistance forward with B UE then backward with B UE, 20 [place] resistance for forward with R UE then backward with R UE (each 2 minutes each). Pt then working on grasping and placing items in designated area, physical assist to guide R hand to object then pt able to grasp and place with minimal cues. After therapy, pt sitting in recliner with call light/phone in reach. Safety measures in place. All needs met. OT Short Term Goals Short Term Goals Time Frame: Jan 03, 2023 Shower/bathe self: 2 Lower body dressin OT [facility] Goals [facility] Goals Time Frame: January 17, 2023 Acute change in mental status: 1 Inattention: 2 Disorganized thinkin Altered level of consciousness: 0 Eating (QC): 6 Oral Hygiene (QC): 6 Toileting Hygiene (QC): 4 Shower/Bathe Self (QC): 4 Upper Body Dressing (QC): 4 Lower Body Dressing (QC): 4 On/Off Footwear (QC): 4 Additional Goals: 1-Demonstrate ADL Tasks, 2-Verbalize Understanding, 3- ImproveStrength/Talha 1=Demonstrate adherence to instructed precautions during ADL tasks. 2=Patient will verbalize/demonstrate understanding of assistive devices/modifications for ADL. 3=Patient will improve strength/tolerance for activity to enable patient to perform ADL's. OT Education/Plan Problem List/Assessment Assessment: Decreased Activ Tolerance, Decreased Safety Aware, Decreased UE Strength, Impaired Cognition, Impaired Coordination, Impaired Funct Balance, Impaired Self-Care Skills, Restricted Funct UE ROM, Visual-Perceptual Deficit Discharge Recommendations Plan/Recommendations: Continue POC Treatment Plan/Plan of Care Patient would benefit from OT for education, treatment and training to promote independence in ADL's, mobility, safety and/or upper extremity function for ADL's. Plan of Care: ADL Retraining, Functional Mobility, Group Exercise/Act as Ind, UE Funct Exercise/Act, UE Neuromus Re-Ed/Coord, Visual/Perceptual Retrain, W/C Management Training Treatment Duration: January 17, 2023 Frequency: At least 5 of 7 days/Wk (IRF) Estimated Hrs Per Day: 1.5 hours per day Agreement: Yes Rehab Potential: Fair Time Start Time: 08:30 Stop Time: 09:30 DATE: Dec 19, 2022 Total Time Billed (hr/min): 60 Billed Treatment Time 1 visit-NM 4 (60 min) JHOANA GRACE Dec 19, 2022 09:29
--- NOTE | 2022-12-19 11:00 | Physical Therapy Daily Note ---
PT Daily Note-Current Subjective Pt found seated in recliner upon entry. Agreed to PT. Pt reports he had a fall today but does not have any pain. States that he slept alright last night. Reports a little fatigue near end of visit. Pain Section J - Health Conditions 1. Rarely or not at all 2. Occasionally 3. Frequently 4. Almost constantly 8. Unable to answer Pain Effect on Sleep: 1 Pain Interference with Therapy: 1 Pain Interference w/Day-to-Day: 1 Mental Status Patient Orientation: Person, Confused Transfers SCALE: Activities may be completed with or without assistive devices. 5-Gvsgpngdxr-suatrcd completes the activity by him/herself with no assistance from a helper. 5-Set-up or Clean-up Assistance-helper sets up or cleans up; patient completes activity. [place] assists only prior to or following the activity. 4-Supervision or Touching Assistance-helper provides verbal cues and/or touching/steadying and/or contact guard assistance as patient completes activity. Assistance may be provided throughout the activity or intermittently. 3-Partial/Moderate Assistance-helper does LESS THAN HALF the effort. [place] lifts, holds or supports trunk or limbs, but provides less than half the effort. 2-Substantial/Maximal Assistance-helper does MORE THAN HALF the effort. [place] lifts or holds trunk or limbs and provides more than half the effort. 3-Uyvxcculw-rvpryc does ALL the effort. Patient does none of the effort to complete the activity. Or, the assistance of 2 or more helpers is required for the patient to complete the activity. If activity was not attempted, code reason: 7-Patient Refused. 9-Not Applicable-not attempted and the patient did not perform the activity before the current illness, exacerbation or injury. 10-Not Attempted due to Environmental Limitations-(lack of equipment, weather restraints, etc.). 88-Not Attempted due to Medical Conditions or Safety Concerns. Sit to Stand (QC): 3 Chair/Uhy-jv-Ovezr Xfer(QC): 3 Pt MOD assist with sit to stand and chair to wheelchair transfers. Verbal cues required for hand placement and slow controlled movements. Weight Bearing Full Weight Bearing Full Weight Bearing Pushes significantly toward (R)/affected side Gait Training Does the Patient Walk?: Yes Distance: 40 feet x 4 (forward/retro) Walk 10 feet (QC): 3 Walk 50 ft with 2 Turns(QC): 3 Walk 150 ft (QC): 3 Gait Persons Needed: 1 Gait Assistive Device: FWW Pt MOD assist with ambulation at //. Required assistance to stay upright. Displays less scissoring during gait cycle this visit. Treatments Standing exercises at //: Side-steps x 3 trips at // Marching x 10 Heel/toe raises x 10 Standing /c no hand support x 1 minute (no loss of balance) Normal stance on AirX x 30 seconds (slight loss of balance to R side) Weight shifts on AirX x 30 seconds Step taps (VCs for slow movements) Seated exercises: Hip abd YTB x 10 Marching YTB x 10 Hamstring curls YTB x 10 Assessment Current Status: Good Progress Pt displays good strength and endurance throughout visit. Required short seated rest breaks between sets. Pt requires verbal cues to slow down with completion of therapeutic exercises and transfers. Pt gait cycle improves with slower step pattern. Displays decreased scissoring during ambulation. Continue to progress pt as tolerated per POC to improve strength, endurance, and functional ability. PT Mcc Goals [place] Goals PT Mcc Goals Time Frame: January 14, 2023 Roll Left & Right (QC): 6 Sit to Lying (QC): 5 Lying-Sitting on Side/Bed(QC): 5 Sit to Stand (QC): 3 (Min (A) of 1) Chair/Ead-go-Ecrwo Xfer(QC): 3 (Min (A) of 1) Toilet Transfer (QC): 3 (Min (A) of 1) Car Transfer (QC): 3 (Min (A) of 1) Does the Patient Walk: Yes Walk 10 feet (QC): 3 (Mod (A) of 1 with least restrictive device) Walk 50ft with 2 Turns (QC): 3 (mod (A) of 1 with least restrictive device) Walk 150 ft (QC): 88 Walking 10ft on Uneven Surface: 88 1 Step (curb) (QC): 88 4 Steps (QC): 88 12 Steps (QC): 88 Picking up an Object (QC): 3 (mod (A) of 1 with FWW and jointer operator) Does the Pt use WC or Scooter?: Yes Wheel 50 feet with 2 turns (QC: 5 Type: Manual Wheel 150 feet: 5 PT Plan Treatment/Plan Treatment Plan: Continue Plan of Care Treatment Plan: Bed Mobility, Education, Functional Activity Talha, Functional Strength, Group Therapy, Gait, Safety, Therapeutic Exercise, Transfers, Other (W/C propulsion/management) Treatment Duration: January 14, 2023 Frequency: At least 5 of 7 days/Wk (IRF) Estimated Hrs Per Day: 1.5 hours per day Patient and/or Family Agrees t: Yes Time Time In: 1000 Time Out: 1100 DATE: Dec 19, 2022 Total Billed Treatment Time: 60 Total Billed Treatment 1 visit GT x 1 EX x 3 MONO JARAMILLO [employer] Dec 19, 2022 11:00
--- NOTE | 2022-12-19 12:06 | Speech Therapy Daily Note ---
Speech Daily Progress Note Subjective Date Seen by Provider: Dec 19, 2022 Time Seen by Provider: 09:50 The patient was seated in the recliner, awake and alert, upon entrance to his room by the clinician. The patient greeted the clinician appropriately and was agreeable to participation in the dysphagia treatment session. Objective The clinician reviewed the patient's modified barium swallow study on the computer. The clinician provided education on the anatomy and physiology of the swallow mechanism, as well as, aspiration and possible consequences of aspiration. The patient was able to view the silent aspiration episode of his swallow, as well as, the importance of the throat clear following the swallow with mildly thick liquids. The patient voiced comprehension and denied additional questions at this time. The patient's current recommendations and safe swallowing precautions were reviewed and provided. The patient's diet consistency and recommendations are posted in the patient's room. Assessment Assessment Current Status: Fair Progress Treatment Plan Continue Plan of Care Speech Short Term Goals Short Term Goals Short Term Goals 1. The patient will display safe swallowing precautions with 80% accuracy, independently. Time Frame-STG: Five Days. Speech Usp Goals Internal Audit Director Goals 1. The patient will tolerate the least restrictive diet consistency without s/s of suspected aspiration. Time Frame: One Week. Speech-Plan Treatment Plan Speech Therapy Treatment Plan: Continue Plan of Care Treatment Duration: Jan 06, 2023 Frequency: Modified Program (IRF) (Three to fives times per week.) Estimated Hrs Per Day: .5 hour per day Rehab Potential: Fair Pt/Family Agrees to Plan: Yes Safety Risks/Education Teaching Recipient: Patient Teaching Methods: Demonstration, Handout, Discussion, Audiovisual Response to Teaching: Reinforcement Needed Education Topics Provided: Safe Swallowing Precautions, Recommendations Time Speech Therapy Time In: 09:50 Speech Therapy Time Out: 10:00 DATE: Dec 19, 2022 Total Billed Time: 10 Billed Treatment Time 1WOODROW MYLES SOTELO Dec 19, 2022 12:06
--- NOTE | 2022-12-19 12:14 | ST Cognitive Linguistic Eval ---
Speech Evaluation-General Medical Diagnosis s/p CVA Onset Date: Dec 11, 2022 Therapy Diagnosis Therapy Diagnosis: Dysarthria, Expressive Aphasia Precautions Precautions: Fall, Aspiration Precautions/Isolations: Aspiration, Fall Prevention, Standard Precautions Referral Referring Physician: Dr. Rose Reason for Referral: Evaluation/Treatment Medical History Pertinent Medical History: CAD, CVA, HTN, CO, Smoking Reviewed History: Yes Social History Current Living Status: Children (son) Speech PLF-Current Status Prior Level of Function The patient denied prior concerns or difficulties with his speech, language, or cognition. Subjective The patient was seated upright in his recliner, awake and alert, upon entrance to his room by the clinician. The patient greeted the clinician appropriately and was agreeable to participation in the cognitive linguistic assessment. Language Eval: Auditory Comprehends Simple Yes/No Ques: Functional (+7/8) Indent/Objects Multiple Del Cid: Functional Ident/Pics in Multiple Del Cid: Functional Follows 1-Step Commands: Functional Follows General Conversations: Functional Language Eval: Verbal Language Completes Spontaneous Greeting: Functional Produces Auto, Serial Info: Functional Imitates Simple Words/Phrases: Functional Word Finding: Moderate Requests Basic Needs: Functional States Basic Personal Info: Functional Cognitive Patient Orientation The patient was oriented to state, month, and day of the week. The patient stated the year was "2024." When verbal cues were provided, the patient progressed with upcoming years ("2025, 2026...") until the accurate year was provided by the clinician. Objective Cognitive Domain Attention: Moderate A comprehension cognitive evaluation will occur once an increase in expressive language skills is experienced. At this time, the patient does display impulsivity. The clinician discussed the tele-sitter and the in-room sitter with the patient extensively. The patient was asked to use his call light prior to attempting to stand or ambulate throughout the room. The patient verbalized comprehension of the material, however, the clinician believes sitter remains necessary due to the patient's inattentiveness. Objective Oral Motor/Speech Production The patient demonstrated dysarthria characterized by a reduced rate of speech and decreased articulatory precision. The patient is less than 50% intelligible in known and unknown contexts, however, is able to increase intelligibility with verbal cues to reduce his rate of speech. Apraxia of speech is not present. Impression The patient demonstrated mild to moderate expressive aphasia and moderate dysarthria. Skilled speech pathology therapy is warranted to improve intelligibility and the patient's expressive language skills. Speech Short Term Goals Short Term Goals Short Term Goals 1. The patient will display safe swallowing precautions with 80% accuracy, independently. 2. The patient will display oral motor exercises with 80% accuracy, independently. Time Frame-STG: Five Days. Speech Long-Term Goals Role Player Goals 1. The patient will tolerate the least restrictive diet consistency without s/s of suspected aspiration. 2. The patient will demonstrate improved expressive language and speech for increased safety with discharge to the least restrictive environment. Time Frame: Two Weeks. Speech-Plan Treatment Plan Speech Therapy Treatment Plan: Continue Plan of Care Treatment Duration: Jan 06, 2023 Frequency: Modified Program (IRF) (Three to fives times per week.) Estimated Hrs Per Day: .5 hour per day Rehab Potential: Fair Pt/Family Agrees to Plan: Yes Safety Risks/Education Teaching Recipient: Patient Teaching Methods: Discussion Response to Teaching: Reinforcement Needed Education Topics Provided: Results, Recommendations, Plan of Care Time Speech Therapy Time In: 09:30 Speech Therapy Time Out: 09:50 DATE: Dec 19, 2022 Total Billed Time: 20 Billed Treatment Time 1, MARIO GARCIA [facility] Dec 19, 2022 12:14
--- NOTE | 2022-12-19 14:22 | Occupational Ther Daily Note ---
OT Current Status-Daily Note Subjective Pt sleeping hard in bed, difficult to wake. Bed alarm, telesitter and live sitter present in room. Pt agrees to therapy after max encouragement. Mental Status/Objective Patient Orientation: Person, Place, Time, Situation ADL-Treatment With encouragement and bed positioning, pt able to scoot self up in bed. Pt then held onto bowl with R hand and scooped with spoon and brought to mouth with L hand. Pt has difficulty with keeping food on spoon when lifting mouth. Pt requires assist for small remainder of food. Pt then requires set up for remaining food on tray, does use regular utensils to eat. After session, pt sitting up in bed with call light/phone in reach. All safety measures in place. Therapy Code Descriptions/Definitions Functional [place] Measure: 0=Not Assessed/NA 4=Minimal Assistance 1=Total Assistance 5=Supervision or Setup 2=Maximal Assistance 6=Modified [place] 3=Moderate Assistance 7=Complete IndependenceSCALE: Activities may be completed with or without assistive devices. 4-Sezknnsxyw-cjnepah completes the activity by him/herself with no assistance from a helper. 5-Set-up or Clean-up Assistance-helper sets up or cleans up; patient completes activity. Leon assists only prior to or following the activity. 4-Supervision or Touching Assistance-helper provides verbal cues and/or touching/steadying and/or contact guard assistance as patient completes activity. Assistance may be provided throughout the activity or intermittently. 3-Partial/Moderate Assistance-helper does LESS THAN HALF the effort. Leon lifts, holds or supports trunk or limbs, but provides less than half the effort. 2-Substantial/Maximal Assistance-helper does MORE THAN HALF the effort. Leon lifts or holds trunk or limbs and provides more than half the effort. 7-Tuwhnncpr-mrbstc does ALL the effort. Patient does none of the effort to complete the activity. Or, the assistance of 2 or more helpers is required for the patient to complete the activity. If activity was not attempted, code reason: 7-Patient Refused. 9-Not Applicable-not attempted and the patient did not perform the activity before the current illness, exacerbation or injury. 10-Not Attempted due to Environmental Limitations-(lack of equipment, weather restraints, etc.). 88-Not Attempted due to Medical Conditions or Safety Concerns. Eating (QC): 4 OT Short Term Goals Short Term Goals Time Frame: Jan 03, 2023 Shower/bathe self: 2 Lower body dressin OT Jail Goals Jail Goals Time Frame: January 17, 2023 Acute change in mental status: 1 Inattention: 2 Disorganized thinkin Altered level of consciousness: 0 Eating (QC): 6 Oral Hygiene (QC): 6 Toileting Hygiene (QC): 4 Shower/Bathe Self (QC): 4 Upper Body Dressing (QC): 4 Lower Body Dressing (QC): 4 On/Off Footwear (QC): 4 Additional Goals: 1-Demonstrate ADL Tasks, 2-Verbalize Understanding, 3- ImproveStrength/Talha 1=Demonstrate adherence to instructed precautions during ADL tasks. 2=Patient will verbalize/demonstrate understanding of assistive devices/modifications for ADL. 3=Patient will improve strength/tolerance for activity to enable patient to perform ADL's. OT Education/Plan Problem List/Assessment Assessment: Decreased Activ Tolerance, Decreased Safety Aware, Decreased UE Str ength, Impaired Bed Mobility, Impaired Cognition, Impaired Coordination, Impaired Funct Balance, Impaired Self-Care Skills, Restricted Funct UE ROM Discharge Recommendations Plan/Recommendations: Continue POC Treatment Plan/Plan of Care Patient would benefit from OT for education, treatment and training to promote independence in ADL's, mobility, safety and/or upper extremity function for ADL's. Plan of Care: ADL Retraining, Functional Mobility, Group Exercise/Act as Ind, UE Funct Exercise/Act, UE Neuromus Re-Ed/Coord, Visual/Perceptual Retrain, W/C Management Training Treatment Duration: January 17, 2023 Frequency: At least 5 of 7 days/Wk (IRF) Estimated Hrs Per Day: 1.5 hours per day Agreement: Yes Rehab Potential: Fair Time Start Time: 12:45 Stop Time: 13:00 DATE: Dec 19, 2022 Total Time Billed (hr/min): 15 Billed Treatment Time 1 visit-ADL 1 (15 min) JHOANA GRACE Dec 19, 2022 14:22
--- NOTE | 2022-12-19 16:00 | Physical Therapy Daily Note ---
PT Daily Note-Current Subjective Pt found seated in bed upon entry. Agreed to PT. Pt reports that he is a little worn out from AM visit but does not have any pain. Pain Section J - Health Conditions 1. Rarely or not at all 2. Occasionally 3. Frequently 4. Almost constantly 8. Unable to answer Pain Effect on Sleep: 1 Pain Interference with Therapy: 1 Pain Interference w/Day-to-Day: 1 Mental Status Patient Orientation: Person Transfers SCALE: Activities may be completed with or without assistive devices. 9-Fphudqfkcb-yjthhpt completes the activity by him/herself with no assistance from a helper. 5-Set-up or Clean-up Assistance-helper sets up or cleans up; patient completes activity. [place] assists only prior to or following the activity. 4-Supervision or Touching Assistance-helper provides verbal cues and/or touching/steadying and/or contact guard assistance as patient completes activity. Assistance may be provided throughout the activity or intermittently. 3-Partial/Moderate Assistance-helper does LESS THAN HALF the effort. [place] lifts, holds or supports trunk or limbs, but provides less than half the effort. 2-Substantial/Maximal Assistance-helper does MORE THAN HALF the effort. [place] lifts or holds trunk or limbs and provides more than half the effort. 2-Urbzsyrbs-dcdhbu does ALL the effort. Patient does none of the effort to complete the activity. Or, the assistance of 2 or more helpers is required for the patient to complete the activity. If activity was not attempted, code reason: 7-Patient Refused. 9-Not Applicable-not attempted and the patient did not perform the activity before the current illness, exacerbation or injury. 10-Not Attempted due to Environmental Limitations-(lack of equipment, weather restraints, etc.). 88-Not Attempted due to Medical Conditions or Safety Concerns. Sit to Lying (QC): 3 Sit to Stand (QC): 3 Pt MOD assist with sit to stand transfers. Required frequent verbal cues for proper hand placement. Sit to stand completed 5x. MIN assist with affected LE lifting /c sit to lying transfer. Weight Bearing Full Weight Bearing Full Weight Bearing Pushes significantly toward (R)/affected side Gait Training Does the Patient Walk?: No and Walking Goal IS indicated Treatments Seated exercises: Sit to stands x 5 Hip abd/add x 10 Marching x 10 LAQs x 10 Heel/toe raises x 10 Heel slides x 10 Assessment Current Status: Good Progress Pt tolerated therapeutic exercise and functional activity training well. Displays increased fatigue with treatment. No rest breaks required. Pt transferred to lying position post-treatment with nurse present. Continue to progress pt as tolerated per POC to improve gait cycle, strength, endurance, and safety awareness. PT Fpc Goals Web Content Writer Goals PT Fpc Goals Time Frame: January 14, 2023 Roll Left & Right (QC): 6 Sit to Lying (QC): 5 Lying-Sitting on Side/Bed(QC): 5 Sit to Stand (QC): 3 (Min (A) of 1) Chair/Xwc-ee-Doufa Xfer(QC): 3 (Min (A) of 1) Toilet Transfer (QC): 3 (Min (A) of 1) Car Transfer (QC): 3 (Min (A) of 1) Does the Patient Walk: Yes Walk 10 feet (QC): 3 (Mod (A) of 1 with least restrictive device) Walk 50ft with 2 Turns (QC): 3 (mod (A) of 1 with least restrictive device) Walk 150 ft (QC): 88 Walking 10ft on Uneven Surface: 88 1 Step (curb) (QC): 88 4 Steps (QC): 88 12 Steps (QC): 88 Picking up an Object (QC): 3 (mod (A) of 1 with FWW and [employer] retailer sales consultant) Does the Pt use WC or Scooter?: Yes Wheel 50 feet with 2 turns (QC: 5 Type: Manual Wheel 150 feet: 5 PT Plan Treatment/Plan Treatment Plan: Continue Plan of Care Treatment Plan: Bed Mobility, Education, Functional Activity Talha, Functional Strength, Group Therapy, Gait, Safety, Therapeutic Exercise, Transfers, Other (W/C propulsion/management) Treatment Duration: January 14, 2023 Frequency: At least 5 of 7 days/Wk (IRF) Estimated Hrs Per Day: 1.5 hours per day Patient and/or Family Agrees t: Yes Time Time In: 1415 Time Out: 1430 DATE: Dec 19, 2022 Total Billed Treatment Time: 15 Total Billed Treatment 1 visit EX x 1 MONO JARAMILLO COLLET MAKING MACHINE OPERATOR Dec 19, 2022 16:00
[2022-12-19 17:15] VITALS: BP 97/69
[2022-12-19 18:32] VITALS: BP 103/74
[2022-12-19 19:33] VITALS: BP 113/75
[2022-12-20] MEDS ORDERED: LORazepam INJ 2 MG/ML (ATIVAN) VIAL IVP ONE (02:00)
[2022-12-20] MEDS ORDERED: ZIPRASIDONE 20 MG INJ (GEODON) VIAL IM PRN (02:00)
[2022-12-20] MEDS ORDERED: WATER (STERILE) FOR INJ 10 ML BTL INJ SCH (02:00)
[2022-12-20] MEDS ORDERED: LORazepam INJ 2 MG/ML (ATIVAN) VIAL ONE (02:01)
[2022-12-20] MEDS ORDERED: WATER (STERILE) FOR INJECTION 20 ML ONE (02:16)
--- NOTE | 2022-12-20 05:44 | PM&R Progress Note ---
Subjective HPI/CC On Admission Date Seen by Provider: Dec 20, 2022 Time Seen by Provider: 12:00 Subjective/Events-last exam 12/20/2022: 12/19/2022: Doing well Monitoring closely Walking with assist Impulsive 1-on-1 sitter likely will be required 12/18/2022: Doing well Wants to go home soon Family at bedside NO major concerns 12/17/2022: Doing well Participating with therapy Standing with assist No pain Dysarthria noted Review of Systems General: Fatigue, Malaise Neurological: Weakness, Incoordination, Confusion Objective Exam Vital Signs Vital Signs Date Time Temp Pulse Resp B/P (MAP) Pulse Ox O2 Delivery O2 Flow Rate FiO2 12/20/22 09:00 Room Air 12/20/22 08:00 36.2 97 16 124/72 (89) 95 Capillary Refill : General Appearance: No Apparent Distress, WD/WN, Chronically ill HEENT: PERRL/EOMI, Normal ENT Inspection, Pharynx Normal Neck: Full Range of Motion, Normal Inspection, Non Tender, Supple, Carotid Bruit Respiratory: Chest Non Tender, Lungs Clear, No Accessory Muscle Use, No Respiratory Distress, Decreased Breath Sounds Cardiovascular: Regular Rate, Rhythm, No Edema, No Gallop, No JVD, No Murmur, Normal Peripheral Pulses Gastrointestinal: Normal Bowel Sounds, No Organomegaly, No Pulsatile Mass, Non Tender, Soft Back: Normal Inspection, No CVA Tenderness, No Vertebral Tenderness Extremity: Normal Capillary Refill, Normal Inspection, Normal Range of Motion, Non Tender, No Calf Tenderness, No Pedal Edema Neurologic/Psychiatric: Alert, Oriented x3, Abnormal solar field service technician II-XII, Abnormal Gait, Aphasia, Depressed Affect, Disoriented, Facial Droop, Motor Weakness (right sided 2/5) Skin: Normal Color, Warm/Dry Lymphatic: No Adenopathy Results/Procedures Lab Patient resulted labs reviewed. FIM Transfers Therapy Code Descriptions/Definitions Functional [place] Measure: 0=Not Assessed/NA 4=Minimal Assistance 1=Total Assistance 5=Supervision or Setup 2=Maximal Assistance 6=Modified [place] 3=Moderate Assistance 7=Complete IndependenceSCALE: Activities may be completed with or without assistive devices. 9-Mreiffgfgi-grgjowj completes the activity by him/herself with no assistance from a helper. 5-Set-up or Clean-up Assistance-helper sets up or cleans up; patient completes activity. Damar assists only prior to or following the activity. 4-Supervision or Touching Assistance-helper provides verbal cues and/or touching/steadying and/or contact guard assistance as patient completes activity. Assistance may be provided throughout the activity or intermittently. 3-Partial/Moderate Assistance-helper does LESS THAN HALF the effort. Damar lif ts, holds or supports trunk or limbs, but provides less than half the effort. 2-Substantial/Maximal Assistance-helper does MORE THAN HALF the effort. Damar lifts or holds trunk or limbs and provides more than half the effort. 0-Bvqzjzxay-uyrabf does ALL the effort. Patient does none of the effort to complete the activity. Or, the assistance of 2 or more helpers is required for the patient to complete the activity. If activity was not attempted, code reason: 7-Patient Refused. 9-Not Applicable-not attempted and the patient did not perform the activity before the current illness, exacerbation or injury. 10-Not Attempted due to Environmental Limitations-(lack of equipment, weather restraints, etc.). 88-Not Attempted due to Medical Conditions or Safety Concerns. Roll Left to Right (QC): 3 (Min (A) to roll (L) -- needed therapist to place (R) hand on bedrail for patient to pull. (I) rolling (R) with bedrail.) Sit to Lying (QC): 3 Sit to Stand (QC): 3 Chair/Ewx-lk-Cvafc Xfer(QC): 3 Car Transfer (QC): 88 (Not safe today due to assist required for basic transfers.) Gait Training Does the Patient Walk?: No and Walking Goal IS indicated Distance: 40 feet x 4 (forward/retro) Walk 10 feet (QC): 3 Walk 50 ft with 2 Turns(QC): 3 Walk 150 ft (QC): 3 Walking 10ft/uneven surface-QC: 88 (Unable to perform safely) Gait Persons Needed: 1 Gait Assistive Device: FWW Wheelchair Training Does the Pt Use a Wheelchair?: Yes Distance: 50 Wheel 50 ft with 2 turns (QC): 3 Wheel 150 ft (QC): 3 (Min (A) using (L) UE and feet, CGA using (B) LE's only with cues to avoid obstacles, min (A) using (L) UE and (L) LE ((R) foot on legrest).) Type of Wheelchair: Manual Stair Training 1 Step (curb) (QC): 88 4 Steps (QC): 88 12 Steps (QC): 88 Balance Picking up an Object (QC): 88 (unsafe to attempt in standing due to balance deficits.) ADL-Treatment Eating (QC): 4 Oral Hygiene (QC): 4 Shower/Bathe Self (QC): 1 Upper Body Dressing (QC): 3 Lower Body Dressing (QC): 1 On/Off Footwear (QC): 5 Toileting Hygiene (QC): 1 Assessment/Plan Assessment and Plan Assess & Plan/Chief Complaint Assessment: CVA Right sided weakness Dysphagia Smoker COPD Chronic cough HTN HLP Left eye blindness Plan: BP management Fall risk Aspiration risk PT OT protocol 12/17/2022: Monitor closely IS ST consult 12/18/2022: Aggressive rehab Monitor closely 12/19/2022: Monitor for falls 12/20/2022: (1) CVA (cerebral vascular accident) YUMIKO LIZAMA DO Dec 20, 2022 05:44
[2022-12-20 08:00] VITALS: BP 124/72
--- NOTE | 2022-12-20 09:41 | Occupational Ther Daily Note ---
OT Current Status-Daily Note Subjective Pt alert and agitated when VENTURA entered room. Live sitter, telesitter and bed alarm for safety measures. Mental Status/Objective Patient Orientation: Person, Confused ADL-Treatment Due to impulsiveness and decreased cognition at this time, pt required increased assistance with dressing today. Pt took socks then shoes off stating that he does not want them on. Pt requires multiple people to assist with any mobility at this time do to impulsiveness, attempting to get out of bed or w/c to stand by self. Pt is not responding to staff when recommendations to stay safe and allow assistance for mobility, physical assistance to maintain safe positions is needed. Pt is aggressive towards this therapist and other staff members at this time. Assist x2 for transfer from w/c to bed then 2 sitters for safety of staff is recommended. Attempted to engage pt in activities or conversation to n ormalize situation, pt would mumble and shake head no with questions or mumble he would like to do something then either throw it at staff members or disarray task placed in front of pt. Pt finally began to sleep at end of therapy session. All safety measures in place. Therapy Code Descriptions/Definitions Functional [place] Measure: 0=Not Assessed/NA 4=Minimal Assistance 1=Total Assistance 5=Supervision or Setup 2=Maximal Assistance 6=Modified [place] 3=Moderate Assistance 7=Complete IndependenceSCALE: Activities may be completed with or without assistive devices. 2-Xdteizbizf-jzypglo completes the activity by him/herself with no assistance from a helper. 5-Set-up or Clean-up Assistance-helper sets up or cleans up; patient completes activity. [place] assists only prior to or following the activity. 4-Supervision or Touching Assistance-helper provides verbal cues and/or touching/steadying and/or contact guard assistance as patient completes activity. Assistance may be provided throughout the activity or intermittently. 3-Partial/Moderate Assistance-helper does LESS THAN HALF the effort. [place] lifts, holds or supports trunk or limbs, but provides less than half the effort. 2-Substantial/Maximal Assistance-helper does MORE THAN HALF the effort. [place] lifts or holds trunk or limbs and provides more than half the effort. 7-Xhodwykir-bxixfb does ALL the effort. Patient does none of the effort to complete the activity. Or, the assistance of 2 or more helpers is required for the patient to complete the activity. If activity was not attempted, code reason: 7-Patient Refused. 9-Not Applicable-not attempted and the patient did not perform the activity before the current illness, exacerbation or injury. 10-Not Attempted due to Environmental Limitations-(lack of equipment, weather restraints, etc.). 88-Not Attempted due to Medical Conditions or Safety Concerns. OT Short Term Goals Short Term Goals Time Frame: Jan 03, 2023 Shower/bathe self: 2 Lower body dressin OT Multiple Drum Sander Goals Snf Goals Time Frame: January 17, 2023 Acute change in mental status: 1 Inattention: 2 Disorganized thinkin Altered level of consciousness: 0 Eating (QC): 6 Oral Hygiene (QC): 6 Toileting Hygiene (QC): 4 Shower/Bathe Self (QC): 4 Upper Body Dressing (QC): 4 Lower Body Dressing (QC): 4 On/Off Footwear (QC): 4 Additional Goals: 1-Demonstrate ADL Tasks, 2-Verbalize Understanding, 3-ImproveStrength/Talha 1=Demonstrate adherence to instructed precautions during ADL tasks. 2=Patient will verbalize/demonstrate understanding of assistive devices/modifications for ADL. 3=Patient will improve strength/tolerance for activity to enable patient to perform ADL's. OT Education/Plan Problem List/Assessment Assessment: Decreased Activ Tolerance Discharge Recommendations Plan/Recommendations: Continue POC Treatment Plan/Plan of Care Patient would benefit from OT for education, treatment and training to promote independence in ADL's, mobility, safety and/or upper extremity function for ADL's. Plan of Care: ADL Retraining, Functional Mobility, Group Exercise/Act as Ind, UE Funct Exercise/Act, UE Neuromus Re-Ed/Coord, Visual/Perceptual Retrain, W/C Management Training Treatment Duration: January 17, 2023 Frequency: At least 5 of 7 days/Wk (IRF) Estimated Hrs Per Day: 1.5 hours per day Agreement: Yes Rehab Potential: Fair Time Start Time: 08:30 Stop Time: 10:00 DATE: Dec 20, 2022 Total Time Billed (hr/min): 90 Billed Treatment Time 1 visit-FA 6 (90 min) JHOANA GRACE Dec 20, 2022 09:41
--- NOTE | 2022-12-20 10:34 | Speech Therapy Progress Note ---
Therapy Progress Note Speech pathology was scheduled to complete skilled therapy at 0930 to 1000. The clinician arrived at the patient's room to attempt skilled services at 0930. The occupational therapist is providing sitting and supervision services at this time with the respiratory therapist as two sitters are required at this time due to the patient's current impulsiveness and behavior. Immediately prior to the session, the patient had returned to sleep. The clinician was instructed not to wake patient or attempt skilled services at this time for the clinician and patient safety. ST to re-attempt as schedule allows. MYLES SOTELO Dec 20, 2022 10:34
[2022-12-20] MEDS: DOCUSATE SODIUM 100 MG (COLACE) CAP PO SCH (11:09)
[2022-12-20] MEDS: OMEGA 3 (FISH OIL) 1000 MG CAP PO SCH (11:09)
[2022-12-20] MEDS: ASPIRIN 81 MG CHEW (CHILDREN'S ASA) PO SCH (11:09)
[2022-12-20] MEDS: ASCORBIC ACID (VIT C) 500 MG TABLET PO SCH (11:09)
[2022-12-20] MEDS: polyethylene glycoL POWDER 17 GM (MIRALAX) PACK PO SCH (11:10)
[2022-12-20] MEDS: VITAMIN E 180 MG (400 UNITS) CAP PO SCH (11:10)
[2022-12-20] MEDS: lisINopril 40 MG (PRINIVIL) TABLET PO SCH (11:10)
[2022-12-20] MEDS: CLOPIDOGREL 75 MG (PLAVIX) TABLET PO SCH (11:10)
[2022-12-20] MEDS: SENNA W/DOCUSATE (SENOKOT S) TABLET PO SCH (11:10)
--- NOTE | 2022-12-20 12:41 | Speech Therapy Progress Note ---
Therapy Progress Note ST re-attempted completion of skilled services at 1236. Prior to re-attempting, the clinician discussed the patient with the patient's RN. At this time, the patient's RN has politely requested ST not re-attempt the skilled therapy session due to the extended length of time necessary to reduce impulsive behaviors (the patient is currently seated calmly at bedside with two family members/sitters present). ST will not re-attempt skilled therapy as requested. MYLES SOTELO Dec 20, 2022 12:41
--- NOTE | 2022-12-20 13:40 | Occ Therapy Progress Note ---
Therapy Progress Note OT attempted tx this afternoon at 1250. Prior to attempting therapy, OT discussed pt's care with his RN. Pt's RN politely requests OT not to attempt therapy at this time due to pt currently being asleep. When pt is awake, pt requires increased time to reduce impulsive behaviors, even with family and sitter present. OT will not reattempt tx at this time per RN request. OT will continue to monitor pt status and resume therapy when pt is more medically stable and able to actively participate in skilled therapy. ZAINAB CASEY OT Dec 20, 2022 13:40
[2022-12-20] MEDS ORDERED: ATOR80TA76 PO (13:43)
[2022-12-20] MEDS ORDERED: OMEG100032 PO (13:43)
[2022-12-20] MEDS ORDERED: CLOP75TA28 PO (13:43)
[2022-12-20] MEDS ORDERED: ASPI-999 PO (13:43)
[2022-12-20] MEDS ORDERED: CARV12.53 PO (13:43)
[2022-12-20] MEDS ORDERED: LISI40TA9 PO (13:43)
--- NOTE | 2022-12-20 13:44 | D/C HH Face to Face Order ---
D/C HH Face to Face Orders Reconcile Patient Problems Problems Reviewed?: Yes Instructions for Patient HH Patient Instructions/FollowUp: PCP 1 week Physician to follow Patient: PCP Discharge Diet for Home: other diet (thickened liquids, soft diet) Patient Problems: CVA Patient Data-Allergies,Ht & Wt Patient Allergies: Coded Allergies: No Allergy Information Available (Unverified , 12/16/22) Height (Feet): 6 Height (Inches): 3 Home Health Need/Face to Face Date of Face to Face: Dec 20, 2022 Clinical Findings: Generalized weakness and fatigue, Instability, Muscle weakness I have seen Pt dski-xs-fjif: Yes Discharged To: Home Diagnosis/Conditions: CVA Patient is Homebound due to: CognItive deficits, Fabrizio fall risk due to instabilty, Muscle weakness Homebound Status Due to the above stated illness, injury or surgical procedure (medical condi tion or diagnosis) and associated clinical findings, the patient is homebound because of his/her inability to leave home except with aid of a supportive device and/or person AND leaving the home requires a considerable and taxing effort or is medically contraindicated. Pt req the following assistanc: Walker, Wheelchair Home Health Nursing Orders Home Health Services Order: Nursing Services, Negative [place]-Evaluate & Treat, Physical Therapy-Evaluate & Treat Certify Stmt I certify that this patient is under my care and that I, a nurse practitioner or a physician; a bar assistant working with me, had a face to face encounter that - meets the physician face to face encounter requirements with this patient as dated. YUMIKO LIZAMA DO Dec 20, 2022 13:44
--- NOTE | 2022-12-20 13:44 | Discharge Summary ---
Diagnosis/Chief Complaint Date of Admission Dec 16, 2022 at 15:50 Date of Discharge Discharge Date: Dec 20, 2022 Discharge Diagnosis Assessment: CVA Right sided weakness Dysphagia Smoker COPD Chronic cough HTN HLP Left eye blindness Plan: BP management Fall risk Aspiration risk PT OT protocol 12/17/2022: Monitor closely IS ST consult 12/18/2022: Aggressive rehab Monitor closely 12/19/2022: Monitor for falls (1) CVA (cerebral vascular accident) Discharge Summary Discharge Physical Examination Allergies: Coded Allergies: lorazepam (Verified Allergy, Severe, 12/20/22) Psychosis Vitals & I&Os Vital Signs Date Time Temp Pulse Resp B/P (MAP) Pulse Ox O2 Delivery O2 Flow Rate FiO2 12/20/22 09:00 Room Air 12/20/22 08:00 36.2 97 16 124/72 (89) 95 General Appearance: Alert Respiratory: Clear to Auscultation Cardiovascular: Regular Rate Hospital Course Was the Problem List Reviewed?: Yes Short course after he arrived following a catastrophic CVA with right sided weakness and expressive aphasia and dysphagia. PT OT ST all worked with him and enabled regaining of some function with use of AD. [place] thickened liquid and soft diet recommended to prevent aspiration. Patient became confused and delirious. Refused labs and all therapies and family decided to take him home and care for him in familiar surroundings and he was stable and DC with . Labs (last 24 hrs) Laboratory Tests 12/17/22 05:13: White Blood Count 10.5, Red Blood Count 5.17, Hemoglobin 16.2, Hematocrit 47, Mean Corpuscular Volume 91, Mean Corpuscular Hemoglobin 31, Mean Corpuscular Hemoglobin Concent 35, Red Cell Distribution Width 13.1, Platelet Count 280, Mean Platelet Volume 9.9, Immature Granulocyte % (Auto) 0, Neutrophils (%) (Auto) 58, Lymphocytes (%) (Auto) 29, Monocytes (%) (Auto) 9, Eosinophils (%) (Auto) 2, Basophils (%) (Auto) 1, Neutrophils # (Auto) 6.1, Lymphocytes # (Auto) 3.1, Monocytes # (Auto) 1.0, Eosinophils # (Auto) 0.2, Basophils # (Auto) 0.1, Immature Granulocyte # (Auto) 0.0, Sodium Level 138, Potassium Level 3.7, Chloride Level 109H, Carbon Dioxide Level 20L, Anion Gap 9, Blood Urea Nitrogen 20H, Creatinine 0.85, Estimat Glomerular Filtration Rate 96, BUN/Creatinine Ratio 24, Glucose Level 101, Calcium Level 9.3, Corrected Calcium 9.5, Total Bilirubin 0.5, Aspartate Amino Transf (AST/SGOT) 41H, Alanine Aminotransferase (ALT/SGPT) 50, Alkaline Phosphatase 89, Total Protein 7.4, Albumin 3.7 Pending Labs Laboratory Tests 12/17/22 05:13: White Blood Count 10.5, Red Blood Count 5.17, Hemoglobin 16.2, Hematocrit 47, Mean Corpuscular Volume 91, Mean Corpuscular Hemoglobin 31, Mean Corpuscular Hemoglobin Concent 35, Red Cell Distribution Width 13.1, Platelet Count 280, Mean Platelet Volume 9.9, Immature Granulocyte % (Auto) 0, Neutrophils (%) (Auto) 58, Lymphocytes (%) (Auto) 29, Monocytes (%) (Auto) 9, Eosinophils (%) (Auto) 2, Basophils (%) (Auto) 1, Neutrophils # (Auto) 6.1, Lymphocytes # (Auto) 3.1, Monocytes # (Auto) 1.0, Eosinophils # (Auto) 0.2, Basophils # (Auto) 0.1, Immature Granulocyte # (Auto) 0.0, Sodium Level 138, Potassium Level 3.7, Chloride Level 109, Carbon Dioxide Level 20, Anion Gap 9, Blood Urea Nitrogen 20, Creatinine 0.85, Estimat Glomerular Filtration Rate 96, BUN/Creatinine Ratio 24, Glucose Level 101, Calcium Level 9.3, Corrected Calcium 9.5, Total Bilirubin 0.5, Aspartate Amino Transf (AST/SGOT) 41, Alanine Aminotransferase (ALT/SGPT) 50, Alkaline Phosphatase 89, Total Protein 7.4, Albumin 3.7 Discharge Home Medications: Active Scripts Active Fish Oil 1,000 mg Softgel ([place]-3/Dha/Epa/Fish Oil) 1,000 Mg (120 Mg-180 Mg) Capsule 1,000 Mg PO DAILY Lisinopril 40 Mg Tablet 40 Mg PO DAILY Clopidogrel (Clopidogrel Bisulfate) 75 Mg Tablet 75 Mg PO DAILY Carvedilol 12.5 Mg Tablet 12.5 Mg PO BID WITH MEALS Atorvastatin Calcium 80 Mg Tablet 80 Mg PO HS Aspirin 81 Mg Tab.chew 81 Mg PO DAILY Reported [Allergy Supplement] Ea PO UD DISCHARGE ORDERS STATES "TAKES SOME SORT OF [place] TO TAKE YEAST OUT OF MY BODY TO HELP WITH ALLERGIES" Vitamin E (Vitamin E Mixed) 1,000 Unit Capsule 1,000 Unit PO DAILY Krill Oil 1,000 mg Softgel (Krill/Om-3/Dha/Epa/Phospho/Ast) 1,000-170MG Capsule 1 Each PO DAILY Vitamin C (Ascorbic Acid) 1,000 Mg Tablet 1,000 Mg PO DAILY Instructions to patient/family Please see electronic discharge instructions given to patient. Diagnosis/Problems Diagnosis/Problems (1) CVA (cerebral vascular accident) YUMIKO LIZAMA DO Dec 20, 2022 13:44
--- NOTE | 2022-12-23 09:36 | Therapy Team Discharge Summary ---
Therapy Discharge Summary Discharge Recommendations Date of Discharge Dec 20, 2022 at 17:20 Physical Therapy Roll Left to Right (QC): 3 (Min (A) to roll (L) -- needed therapist to place (R) hand on bedrail for patient to pull. (I) rolling (R) with bedrail.) Sit to Lying (QC): 3 Lying to Sitting/Side of Bed(Q: 4 (CGA this pm for sitting balance once EOB.) Sit to Stand (QC): 3 Chair/Wer-wl-Rmriu Xfer(QC): 3 Toilet Transfer (QC): 88 Car Transfer (QC): 88 (Not safe today due to assist required for basic transfers.) Does the Patient Walk: No and Walking Goal IS indicated Mode of Locomotion: Both Anticipated Mode of Locomotion: Both Walk 10 feet (QC): 3 Walk 50 ft with 2 Turns(QC): 3 Walk 150 ft (QC): 3 Walking 10ft on uneven surface: 88 (Unable to perform safely) Gait Assistive Device: FWW Does the Pt Use a Wheelchair: Yes Wheelchair Distance: 50 Wheel 50 ft with 2 turns (QC): 3 Wheel 150 ft (QC): 3 (Min (A) using (L) UE and feet, CGA using (B) LE's only with cues to avoid obstacles, min (A) using (L) UE and (L) LE ((R) foot on legrest).) Type of Wheelchair: Manual 1 Step (curb) (QC): 88 4 Steps (QC): 88 12 Steps (QC): 88 Balance Sitting Static: Fair Balance Sitting Dynamic: Poor Picking up an Object (QC): 88 (unsafe to attempt in standing due to balance deficits.) Occupational Therapy Decreased Activ Tolerance Eating (QC): 4 Oral Hygiene (QC): 4 Shower/Bathe Self (QC): 1 Upper Body Dressing (QC): 3 Lower Body Dressing (QC): 1 On/Off Footwear (QC): 5 Toileting Hygiene (QC): 1 Speech-Language Pathology Due to non-compliance, agitation, and impulsivity, the patient did not meet skilled speech pathology goals and was discharged with family. Upon discharge, the patient was recommended a regular consistency diet with mildly thick liquids, as well as, specific swallowing strategies located in the patient's chart. The patient continued to display moderate dysarthria and mild expressive aphasia. Skilled speech pathology is highly recommended in the post acute setting. PT Special Day Class Teacher Goals Care Home Goals PT Care Home Goals Time Frame: January 14, 2023 Roll Left to Right (QC): 6 Sit to Lying (QC): 5 Lying-Sitting on Side/Bed(QC): 5 Sit to Stand (QC): 3 (Min (A) of 1) Chair/Yhs-lw-Vptag Xfer(QC): 3 (Min (A) of 1) Toilet/Commode Transfer (QC): 3 (Min (A) of 1) Car Transfer (QC): 3 (Min (A) of 1) Does the Patient Walk: Yes Walk 10 feet (QC): 3 (Mod (A) of 1 with least restrictive device) Walk 10ft-Uneven Surface(QC): 88 Walk 50ft with 2 Turns (QC): 3 (mod (A) of 1 with least restrictive device) Walk 150 ft (QC): 88 Does the Pt use WC or Scooter?: Yes Wheel 50 feet with 2 turns (QC: 5 Type: Manual Wheel 150 feet: 5 1 Step (curb) (QC): 88 4 Steps (QC): 88 12 Steps (QC): 88 Picking up an Object (QC): 3 (mod (A) of 1 with FWW and healthcare architect) OT Care Home Goals Care Home Goals Time Frame: January 17, 2023 Acute change in mental status: 1 Inattention: 2 Disorganized thinkin Altered level of consciousness: 0 Eating (QC): 6 Oral Hygiene (QC): 6 Toileting Hygiene (QC): 4 Shower/Bathe Self (QC): 4 Upper Body Dressing (QC): 4 Lower Body Dressing (QC): 4 On/Off Footwear (QC): 4 Additional Goals: 1-Demonstrate ADL Tasks, 2-Verbalize Understanding, 3- ImproveStrength/Talha 1=Demonstrate adherence to instructed precautions during ADL tasks. 2=Patient will verbalize/demonstrate understanding of assistive devices/modifications for ADL. 3=Patient will improve strength/tolerance for activity to enable patient to perform ADL's. Speech Special Day Class Teacher Goals Care Home Goals 1. The patient will tolerate the least restrictive diet consistency without s/s of suspected aspiration. NOT MET. 2. The patient will demonstrate improved expressive language and speech for increased safety with discharge to the least restrictive environment. NOT MET. Time Frame: Two Weeks. MYLES SOTELO Dec 23, 2022 09:36
--- NOTE | 2022-12-23 11:17 | Therapy Team Discharge Summary ---
Therapy Discharge Summary Discharge Recommendations Date of Discharge Dec 20, 2022 at 17:20 Therapy D/C Recommendations: 24 hr Supervision, Home w/ Family Support, Occupational Therapy Home Care Physical Therapy Roll Left to Right (QC): 3 (Min (A) to roll (L) -- needed therapist to place (R) hand on bedrail for patient to pull. (I) rolling (R) with bedrail.) Sit to Lying (QC): 3 Lying to Sitting/Side of Bed(Q: 4 (CGA this pm for sitting balance once EOB.) Sit to Stand (QC): 3 Chair/Vqd-yb-Qjkyr Xfer(QC): 3 Toilet Transfer (QC): 88 Car Transfer (QC): 88 (Not safe today due to assist required for basic transfers.) Does the Patient Walk: No and Walking Goal IS indicated Mode of Locomotion: Both Anticipated Mode of Locomotion: Both Walk 10 feet (QC): 3 Walk 50 ft with 2 Turns(QC): 3 Walk 150 ft (QC): 3 Walking 10ft on uneven surface: 88 (Unable to perform safely) Gait Assistive Device: FWW Does the Pt Use a Wheelchair: Yes Wheelchair Distance: 50 Wheel 50 ft with 2 turns (QC): 3 Wheel 150 ft (QC): 3 (Min (A) using (L) UE and feet, CGA using (B) LE's only with cues to avoid obstacles, min (A) using (L) UE and (L) LE ((R) foot on legrest).) Type of Wheelchair: Manual 1 Step (curb) (QC): 88 4 Steps (QC): 88 12 Steps (QC): 88 Balance Sitting Static: Fair Balance Sitting Dynamic: Poor Picking up an Object (QC): 88 (unsafe to attempt in standing due to balance deficits.) Occupational Therapy Pt admitted to ARU s/p CVA. At [facility], pt was independent with ADLs and functional mobility without AD. Upon initial evaluation, pt required set up with eating and footwear, SBA oral care, min-mod A UE dressing and total assist showering, LE dressing and footwear. OT tx focused on increasing BUE strength and activity tolerance, and increasing safety and independence with ADLs and functional mobility. Pt did not make progress towards goals during rehab stay due to impulsiveness, refusing to participate in ADL sessions, difficulty following instructions and safety concerns requiring live sitters. OT recommends 24 hour supervision at discharge, with assistance from family with ADLs. Pt discharged home with family support, d/c from OT. Decreased Activ Tolerance Eating (QC): 4 Oral Hygiene (QC): 4 Shower/Bathe Self (QC): 1 Upper Body Dressing (QC): 3 Lower Body Dressing (QC): 1 On/Off Footwear (QC): 5 Toileting Hygiene (QC): 1 PT Custodial Goals Custodial Goals PT Custodial Goals Time Frame: January 14, 2023 Roll Left to Right (QC): 6 Sit to Lying (QC): 5 Lying-Sitting on Side/Bed(QC): 5 Sit to Stand (QC): 3 (Min (A) of 1) Chair/Xgl-vj-Yqmml Xfer(QC): 3 (Min (A) of 1) Toilet/Commode Transfer (QC): 3 (Min (A) of 1) Car Transfer (QC): 3 (Min (A) of 1) Does the Patient Walk: Yes Walk 10 feet (QC): 3 (Mod (A) of 1 with least restrictive device) Walk 10ft-Uneven Surface(QC): 88 Walk 50ft with 2 Turns (QC): 3 (mod (A) of 1 with least restrictive device) Walk 150 ft (QC): 88 Does the Pt use WC or Scooter?: Yes Wheel 50 feet with 2 turns (QC: 5 Type: Manual Wheel 150 feet: 5 1 Step (curb) (QC): 88 4 Steps (QC): 88 12 Steps (QC): 88 Picking up an Object (QC): 3 (mod (A) of 1 with FWW and retail leasing agent) OT Business Architect Goals Custodial Goals Time Frame: January 17, 2023 Acute change in mental status: 1 Inattention: 2 Disorganized thinkin Altered level of consciousness: 0 Eating (QC): 6 (not met) Oral Hygiene (QC): 6 (not met) Toileting Hygiene (QC): 4 (not met) Shower/Bathe Self (QC): 4 (not met) Upper Body Dressing (QC): 4 (not met) Lower Body Dressing (QC): 4 (not met) On/Off Footwear (QC): 4 (not met) Additional Goals: 1-Demonstrate ADL Tasks, 2-Verbalize Understanding, 3- ImproveStrength/Talha 1=Demonstrate adherence to instructed precautions during ADL tasks. 2=Patient will verbalize/demonstrate understanding of assistive devices/modif ications for ADL. 3=Patient will improve strength/tolerance for activity to enable patient to perform ADL's. Speech Business Architect Goals Custodial Goals 1. The patient will tolerate the least restrictive diet consistency without s/s of suspected aspiration. NOT MET. 2. The patient will demonstrate improved expressive language and speech for increased safety with discharge to the least restrictive environment. NOT MET. Time Frame: Two Weeks. ZAINAB CASEY OT Dec 23, 2022 11:17
--- NOTE | 2022-12-23 11:35 | Therapy Team Discharge Summary ---
Therapy Discharge Summary Discharge Recommendations Date of Discharge Dec 20, 2022 at 17:20 Therapy D/C Recommendations: 24 hr Supervision, Home w/ Family Support, Occupational Therapy Home Care Physical Therapy Pt admitted to [facility] s/p CVA. At [facility], pt was independent with all mobility. At evaluation, patient was a mod(A) of 2 for upright transfers and mod-max (A) of 2 for gait with a walker requiring extensive assist to avoid leaning (R) during gait. Swing pivot transfers were more functional (min-mod (A)), but patient did display impulsivity with these. Patient was able to propel self in w/c with (B) UE's/LE's with prn cues to avoid (R) obstacles. It was documented that patient fell on 12/19/22 and 24-family supervision was requested at that time. Family opted to take patient home and patient was discharged home with family. Due to significant fall risk and safety concerns, PT recommends 24 hours supervision of the patient at home with family. PT recommends that patient remain w/c level for safe mobility.. Roll Left to Right (QC): 3 Sit to Lying (QC): 3 Lying to Sitting/Side of Bed(Q: 4 (CGA this pm for sitting balance once EOB.) Sit to Stand (QC): 3 Chair/Pux-yj-Jznql Xfer(QC): 3 Toilet Transfer (QC): 88 Car Transfer (QC): 88 Does the Patient Walk: No and Walking Goal IS indicated Mode of Locomotion: Both Anticipated Mode of Locomotion: Both Walk 10 feet (QC): 1 Walk 50 ft with 2 Turns(QC): 1 Walk 150 ft (QC): 1 Walking 10ft on uneven surface: 88 (Unable to perform safely) Gait Assistive Device: FWW Does the Pt Use a Wheelchair: Yes Wheelchair Distance: 50 Wheel 50 ft with 2 turns (QC): 4 Wheel 150 ft (QC): 3 (Min (A) using (L) UE and feet, CGA using (B) LE's only with cues to avoid obstacles, min (A) using (L) UE and (L) LE ((R) foot on legrest).) Type of Wheelchair: Manual 1 Step (curb) (QC): 88 4 Steps (QC): 88 12 Steps (QC): 88 Balance Sitting Static: Fair Balance Sitting Dynamic: Poor Picking up an Object (QC): 88 (unsafe to attempt in standing due to balance deficits.) Occupational Therapy Decreased Activ Tolerance Eating (QC): 4 Oral Hygiene (QC): 4 Shower/Bathe Self (QC): 1 Upper Body Dressing (QC): 3 Lower Body Dressing (QC): 1 On/Off Footwear (QC): 5 Toileting Hygiene (QC): 1 PT General Technician Goals [facility] Goals PT General Technician Goals Time Frame: January 14, 2023 Roll Left to Right (QC): 6 Sit to Lying (QC): 5 Lying-Sitting on Side/Bed(QC): 5 Sit to Stand (QC): 3 (Min (A) of 1) Chair/Tlo-bj-Twvsi Xfer(QC): 3 (Min (A) of 1) Toilet/Commode Transfer (QC): 3 (Min (A) of 1) Car Transfer (QC): 3 (Min (A) of 1) Does the Patient Walk: Yes Walk 10 feet (QC): 3 (Mod (A) of 1 with least restrictive device) Walk 10ft-Uneven Surface(QC): 88 Walk 50ft with 2 Turns (QC): 3 (mod (A) of 1 with least restrictive device) Walk 150 ft (QC): 88 Does the Pt use WC or Scooter?: Yes Wheel 50 feet with 2 turns (QC: 5 Type: Manual Wheel 150 feet: 5 1 Step (curb) (QC): 88 4 Steps (QC): 88 12 Steps (QC): 88 Picking up an Object (QC): 3 (mod (A) of 1 with FWW and delivery man) OT [facility] Goals [facility] Goals Time Frame: January 17, 2023 Acute change in mental status: 1 Inattention: 2 Disorganized thinkin Altered level of consciousness: 0 Eating (QC): 6 (not met) Oral Hygiene (QC): 6 (not met) Toileting Hygiene (QC): 4 (not met) Shower/Bathe Self (QC): 4 (not met) Upper Body Dressing (QC): 4 (not met) Lower Body Dressing (QC): 4 (not met) On/Off Footwear (QC): 4 (not met) Additional Goals: 1-Demonstrate ADL Tasks, 2-Verbalize Understanding, 3-ImproveStrength/Talha 1=Demonstrate adherence to instructed precautions during ADL tasks. 2=Patient will verbalize/demonstrate understanding of assistive devices/modifications for ADL. 3=Patient will improve strength/tolerance for activity to enable patient to perform ADL's. Speech General Technician Goals General Technician Goals 1. The patient will tolerate the least restrictive diet consistency without s/s of suspected aspiration. NOT MET. 2. The patient will demonstrate improved expressive language and speech for increased safety with discharge to the least restrictive environment. NOT MET. Time Frame: Two Weeks. Rosita Ozuna PT Dec 23, 2022 11:35
== END 2022-12-20 17:20 | disposition home health service (06) | DRG 57 ==
PROVIDERS: ADMIT Internal Medicine; ATTEND Internal Medicine
DX: I69.351 Hemiplegia and hemiparesis following cerebral infarction affecting right dominant side (principal); I69.322 Dysarthria following cerebral infarction; I69.391 Dysphagia following cerebral infarction; I69.392 Facial weakness following cerebral infarction; I69.398 Other sequelae of cerebral infarction; R13.10 Dysphagia, unspecified; R26.89 Other abnormalities of gait and mobility; R53.83 Other fatigue; R53.81 Other malaise; R41.0 Disorientation, unspecified; H54.40 Blindness, one eye, unspecified eye; F17.200 Nicotine dependence, unspecified, uncomplicated; I10 Essential (primary) hypertension; F32.A Depression, unspecified; J44.9 Chronic obstructive pulmonary disease, unspecified; R05.3 Chronic cough; E78.5 Hyperlipidemia, unspecified; Z91.81 History of falling
CPT/HCPCS: 36415; 74230; 80053; 85025